=== PATIENT | female | born 1930 | race Caucasian/White ===

== ENCOUNTER 2017-05-20 14:44 | Inpatient (IN) | payer OTHER, MEDICARE ==
[2017-05-20 14:53] VITALS: BMI 24.9
[2017-05-20] MEDS ORDERED: SODIUM CHLORIDE 500 ML IV STA ×2 (14:58→15:22)
[2017-05-20] MEDS ORDERED: ONDANSETRON 4 MG/2 ML VIAL IVPUSH ONE ×2 (14:58→15:58)
[2017-05-20] MEDS ORDERED: ONDANSETRON 4 MG/2 ML VIAL ONE ×2 (15:11→16:03)
[2017-05-20 15:15] LABS: EOS % 0.5 % (0-4.5); HEMATOCRIT 39.7 % (32.4-45.2); LYMPH % 22.7 % (8-40); MCHC 35.2 g/dl (32.0-36.0); MEAN CELL VOLUME 76.8 fl (80-96); MEAN PLT VOLUME 7.8 fl (7.5-11.1); MONO % 2.8 % (3.8-10.2); PLATELET COUNT 257 K/MM3 (134-434); RBC 5.17 M/mm3 (3.60-5.2); WHITE BLOOD COUNT 10.9 K/mm3 (4.0-10.0)
--- NOTE | 2017-05-20 15:20 | PDOC ---
History of Present Illness - General History Source: Patient - History of Present Illness Abdominal Pain Onset Location: reports: other <Trent,NatalieRomulo - Last Filed: 05/20/17 17:33> <Sg Esposito - Last Filed: 05/25/17 02:45> - General Chief Complaint: Vomiting/Diarrhea Stated Complaint: VOMITING Time Seen by Provider: 05/20/17 14:57 Past History - Past Medical History COPD: Yes HTN: Yes Hypercholesterolemia: Yes Psychiatric Problems: Yes (ANXIETY) - Suicide/Smoking/Psychosocial Hx Smoking History: Never smoked Have you smoked in the past 12 months: No Hx Alcohol Use: No Drug/Substance Use Hx: No Substance Use Type: None Hx Substance Use Treatment: No <Bridgette Haji - Last Filed: 05/20/17 17:33> <Sg Esposito - Last Filed: 05/25/17 02:45> - Past Medical History Allergies/Adverse Reactions: Allergies Allergy/AdvReac Type Severity Reaction Status Date / Time No Known Allergies Allergy Verified 05/20/17 14:52 Home Medications: Ambulatory Orders LORazepam [Ativan] 0.5 mg PO TID PRN 06/20/15 Paroxetine HCl 30 mg PO DAILY 06/20/15 Simvastatin 40 mg PO HS 06/20/15 Olanzapine [Zyprexa -] 2.5 mg PO HS tablet 06/23/15 Valsartan 160 mg PO DAILY #30 tablet 06/23/15 Metoprolol Succinate [Toprol Xl] 25 mg PO DAILY 05/20/17 Lactobacillus Acidophilus [Bacid -] 1 tab PO DAILY 7 Days #7 tab 05/23/17 Review of Systems - Review of Systems Constitutional: Yes: Weakness. No: Chills, Fever Respiratory: No: Cough, Shortness of Breath Cardiac (ROS): No: Chest Pain ABD/GI: Yes: Nausea, Vomiting. No: Constipated, Diarrhea, Abdominal cramping <Bridgette Haji - Last Filed: 05/20/17 17:33> *Physical Exam - Vital Signs Last Vital Signs Temp Pulse Resp BP Pulse Ox 97 F L 67 18 119/61 99 05/20/17 14:50 05/20/17 14:50 05/20/17 14:50 05/20/17 14:50 05/20/17 14:50 - Physical Exam General Appearance: Yes: Appropriately Dressed, Mild Distress HEENT: positive: Normal Voice Neck: positive: Supple Respiratory/Chest: positive: Lungs Clear, Normal Breath Sounds. negative: Respiratory Distress Cardiovascular: positive: Regular Rate, S1, S2 Gastrointestinal/Abdominal: positive: Normal Bowel Sounds, Soft. negative: Tender, Distended, Guarding, Rebound Musculoskeletal: negative: CVA Tenderness Integumentary: positive: Dry, Warm Neurologic: positive: Fully Oriented, Alert, Normal Mood/Affect <Bridgette Haji - Last Filed: 05/20/17 17:33> - Vital Signs Last Vital Signs Temp Pulse Resp BP Pulse Ox 97.6 F 72 18 160/70 100 05/23/17 14:15 05/23/17 14:15 05/23/17 10:00 05/23/17 14:15 05/23/17 10:00 <Sg Esposito - Last Filed: 05/25/17 02:45> ED Treatment Course - LABORATORY CBC & Chemistry Diagram: 05/20/17 15:10 05/20/17 15:10 - Medications Given in the ED: ED Medications Discontinued Medications Generic Name Dose Route Start Last Admin Trade Name Freq PRN Reason Stop Dose Admin Ondansetron HCl 4 mg 05/20/17 14:58 05/20/17 15:14 Zofran Injection IVPUSH 05/20/17 14:59 4 mg ONCE ONE Administration <AdithyaBridgette - Last Filed: 05/20/17 17:33> - LABORATORY CBC & Chemistry Diagram: 05/23/17 06:10 05/23/17 06:10 - ADDITIONAL ORDERS Additional order review: 05/21/17 05/20/17 06:00 15:10 RBC 4.48 5.17 D MCV 77.6 L 76.8 L MCHC 34.8 35.2 RDW 16.2 H 16.0 H MPV 7.7 7.8 Neutrophils % Mud Jack Nozzleman 73.0 D Lymphocytes % Mud Jack Nozzleman 22.7 D Monocytes % Mud Jack Nozzleman 2.8 L Eosinophils % Mud Jack Nozzleman 0.5 D Basophils % Mud Jack Nozzleman 1.0 - Medications Given in the ED: ED Medications Discontinued Medications Generic Name Dose Route Start Last Admin Trade Name Freq PRN Reason Stop Dose Admin Atorvastatin Calcium 40 mg 05/20/17 22:00 05/22/17 21:49 Lipitor - PO 40 mg HS MOHIT Administration Sodium Chloride 500 mls @ 500 mls/hr 05/20/17 14:58 05/20/17 15:13 Normal Saline - IV 05/20/17 15:57 500 mls/hr ASDIR STA Administration Sodium Chloride 500 mls @ 500 mls/hr 05/20/17 15:22 05/20/17 15:34 Normal Saline - IV 05/20/17 16:21 500 mls/hr ASDIR STA Administration Potassium Chloride 10 meq in 100 mls @ 100 mls/hr 05/20/17 16:00 05/20/17 21: 56 Potassium Chloride 10 Meq Premix Ivpb - IVPB 05/20/17 18:59 Not Given Q60M MOHIT Potassium Chloride 10 meq/ 105 mls @ 105 mls/hr 05/20/17 19:00 05/20/17 21:38 Sodium Chloride IVPB 05/20/17 20:59 105 mls/hr Q60M MOHIT Administration Potassium Chloride/Sodium Chloride 20 meq in 1,000 mls @ 75 mls/hr 05/20/17 19 :15 05/20/17 21:56 1/2ns+20meq Kcl IV Not Given ASDIR MOHIT Potassium Chloride 20 meq/ 1,010 mls @ 75 mls/hr 05/20/17 21:45 05/21/17 23: 52 Sodium Chloride IV Not Given Q13H MOHIT Potassium Chloride 10 meq/ 105 mls @ 100 mls/hr 05/21/17 12:00 05/21/17 17:05 Sodium Chloride IVPB 05/21/17 14:59 100 mls/hr Q60M MOHIT Administration Potassium Chloride 20 meq/ 260 mls @ 130 mls/hr 05/21/17 21:15 05/21/17 21:43 Sodium Chloride IVPB 05/21/17 23:14 Not Given ONCE ONE Potassium Chloride 20 meq/ 1,010 mls @ 75 mls/hr 05/21/17 23:48 05/22/17 03: 00 Sodium Chloride IVPB 75 mls/hr Q13H MOHIT Administration Potassium Chloride 10 meq/ 105 mls @ 100 mls/hr 05/22/17 10:00 05/22/17 11:56 Sodium Chloride IVPB 05/22/17 11:59 100 mls/hr Q60M MOHIT Administration Sodium Chloride 1,000 mls @ 42 mls/hr 05/22/17 09:00 05/22/17 09:31 1/2 Normal Saline IV 42 mls/hr ASDIR MOHIT Administration Lactobacillus Acidophilus 1 tab 05/22/17 11:00 05/23/17 09:37 Bacid - PO 1 tab DAILY MOHIT Administration Levofloxacin 500 mg 05/21/17 13:45 05/21/17 14:13 Levaquin - PO Not Given DAILY@0600 MOHIT Levofloxacin 500 mg 05/21/17 13:45 05/21/17 14:09 Levaquin - PO 05/21/17 13:46 500 mg ONCE ONE Administration Lorazepam 0.5 mg 05/20/17 18:28 05/23/17 05:28 Ativan - PO 0.5 mg Q8H PRN Administration ANXIETY Metoprolol Succinate 25 mg 05/21/17 10:00 05/23/17 09:37 Toprol Xl - PO 25 mg DAILY MOHIT Administration Olanzapine 2.5 mg 05/20/17 22:00 05/22/17 21:49 Zyprexa - PO 2.5 mg HS MOHIT Administration Ondansetron HCl 4 mg 05/20/17 14:58 05/20/17 15:14 Zofran Injection IVPUSH 05/20/17 14:59 4 mg ONCE ONE Administration Ondansetron HCl 4 mg 05/20/17 15:58 05/20/17 16:13 Zofran Injection IVPUSH 05/20/17 15:59 4 mg ONCE ONE Administration Paroxetine HCl 20 mg/ 30 mg 05/21/17 10:00 05/23/17 09:37 Paroxetine HCl 10 mg PO 30 mg DAILY MOHIT Administration Potassium Chloride 40 meq 05/20/17 15:47 05/20/17 16:13 Potassium Chloride Oral Liquid PO 05/20/17 15:48 Not Given ONCE ONE Potassium Chloride 40 meq 05/21/17 00:47 05/21/17 00:55 K-Dur - PO 05/21/17 00:48 40 meq ONCE ONE Administration Potassium Chloride 40 meq 05/23/17 10:15 05/23/17 09:56 K-Dur - PO 05/23/17 10:16 40 meq ONCE ONE Administration Potassium Chloride 40 meq 05/23/17 14:00 05/23/17 14:33 K-Dur - PO 05/23/17 14:01 40 meq ONCE ONE Administration Promethazine HCl 25 mg 05/20/17 18:54 05/20/17 20:29 Phenergan Injection - IM 25 mg Q6H PRN Administration NAUSEA AND/OR VOMITING Valsartan 160 mg 05/21/17 10:00 05/23/17 09:37 Diovan - PO 160 mg DAILY MOHIT Administration Vancomycin HCl 125 mg 05/21/17 18:00 05/23/17 12:28 Vancomycin Oral Solution PO 125 mg Q6HPO MOHIT Administration <Sg Esposito - Last Filed: 05/25/17 02:45> Medical Decision Making - Medical Decision Making 05/20/17 15:17 87-year-old female, history of anxiety and depression, hypertension, hyperlipidemia, brought in by son for nausea, vomiting and diarrhea that has been intermittent 2 weeks. Patient states she's had numerous episodes of non- bloody, non-bilious vomiting and only one episode of diarrhea yesterday. Reports no abdominal pain or fever or chills. No sick contacts, recent travel or antibiotic use. Reports feeling profoundly weak at this time See exam N/V/D w/ weakness Stable in ED and alert w/ benign abd Possibly viral gastroenteritis vs cdif (though unlikely as only 1 e/o diarrhea) vs colitis -zofran -IVF -labs -CT -discuss dispo w/ PMD 05/20/17 15:48 K of 2.6. EKG w/ shortened FL and LVH, otherwise unremarkable. No CP os SOB. IV K in progress. Rest of labs unremarkable. CT still pending. Will contact PMD and admit at this time 05/20/17 16:[address] Mills and patient admitted <Bridgette Haji - Last Filed: 05/20/17 17:33> - Medical Decision Making 05/25/17 02:44 The patient was seen and evaluated in conjunction with MANOJ Haji under my direct supervision, ancillary studies were reviewed. I agree with the plan as outlined by MANOJ Haji . <Sg Esposito - Last Filed: 05/25/17 02:45> *DC/Admit/Observation/Transfer - Discharge Dispostion Admit: Yes <Bridgette Haji - Last Filed: 05/20/17 17:33> <Sg Esposito - Last Filed: 05/25/17 02:45> Diagnosis at time of Disposition: Dehydration, Hypokalemia Nausea and vomiting Qualifiers: Vomiting type: unspecified Vomiting Intractability: non-intractable Qualified Code(s): R11.2 - Nausea with vomiting, unspecified - Discharge Dispostion Disposition: VNS/HOME HEALTH CARE Condition at time of disposition: Fair
[2017-05-20 15:40] LABS: ALBUMIN 3.7 g/dl (3.4-5.0); ANION GAP 11 (8-16); BILIRUBIN,TOTAL 0.5 mg/dL (0.2-1.0); BLOOD UREA NITROGEN 19 mg/dL (7-18); CALCIUM 8.6 mg/dL (8.5-10.1); CHLORIDE 109 mmol/L (98-107); CO2 23 mmol/L (21-32); GLUCOSE,RANDOM 173 mg/dL (74-106); SGOT/AST 26 U/L (15-37); SGPT/ALT 33 U/L (12-78); SODIUM 143 mmol/L (136-145); TOT PROT 7.3 g/dl (6.4-8.2)
[2017-05-20 15:43] LABS: ALK PHOS 87 U/L (45-117)
[2017-05-20 15:44] LABS: LIPASE 223 U/L (73-393)
[2017-05-20 15:45] LABS: POTASSIUM 2.6 mmol/L (3.5-5.1)
[2017-05-20] MEDS ORDERED: POTASSIUM CHLORIDE ORAL LIQUID 20 MEQ/15 ML PO ONE (15:47)
[2017-05-20] MEDS ORDERED: KCL 10 MEQ IVPB 10 MEQ/100 ML INFUS.BAG IVPB ONE (16:04)
[2017-05-20] MEDS: KCL 10 MEQ IVPB 10 MEQ/100 ML INFUS.BAG IVPB SCH ×2 (16:13→21:56)
[2017-05-20] MEDS ORDERED: ONDANSETRON 4 MG/2 ML VIAL IVPUSH PRN (18:29)
[2017-05-20] MEDS ORDERED: PROMETHAZINE HCL 25 MG/1 ML VIAL IM PRN (18:54)
[2017-05-20] MEDS ORDERED: SODIUM CHLORIDE 0.45% 1,000 ML with POTASSIUM CHLORIDE 20 MEQ IVPB SCH (19:00)
--- NOTE | 2017-05-20 19:08 | HP ---
Admitting History and Physical - Admission Chief Complaint: N/V, diarrhea History of Present Illness: 87 yo female, having N/V intermittently throughout last week, some days no symptoms, otherdays decreased appetite and nausea. Did have diarrhea about 3-4 days ago, but has not recurred. No abd pain, but due to eating poorly has not had a lot of bowel movements lately. No ROBERTS, no fevers, no change with medications lately. In ED found to be dehydrated, also hypokalemic. History Source: Patient, Family Member, Medical Record Limitations to Obtaining History: No Limitations - Past Medical History Cardiovascular: Yes: HTN, Hyperlipdemia Psych: Yes: Anxiety, Bipolar - Past Surgical History Past Surgical History: Yes: Cataract Removal - Smoking History Smoking history: Never smoked Have you smoked in the past 12 months: No - Alcohol/Substance Use Hx Alcohol Use: No Home Medications - Allergies Allergies/Adverse Reactions: Allergies Allergy/AdvReac Type Severity Reaction Status Date / Time No Known Allergies Allergy Verified 05/20/17 14:52 - Home Medications Home Medications: Ambulatory Orders LORazepam [Ativan] 0.5 mg PO TID PRN 06/20/15 Paroxetine HCl 30 mg PO DAILY 06/20/15 Simvastatin 40 mg PO HS 06/20/15 Olanzapine [Zyprexa -] 2.5 mg PO HS tablet 06/23/15 Valsartan 160 mg PO DAILY #30 tablet 06/23/15 Metoprolol Succinate [Toprol Xl] 25 mg PO DAILY 05/20/17 Family Disease History - Family Disease History Family History: Unremarkable Review of Systems - Review of Systems Constitutional: reports: Loss of Appetite, Malaise, Weakness. denies: Chills, Fever, Unintentional Wgt. Loss Eyes: reports: No Symptoms HENT: denies: Difficult Swallowing, Throat Pain Neck: denies: Stiffness, Tenderness Cardiovascular: denies: Chest Pain, Palpitations Respiratory: denies: Cough, SOB, Wheezing Genitourinary: denies: Burning, Discharge, Dysuria Physical Examination Vital Signs: Vital Signs Temperature 97.8 F 05/20/17 18:00 Pulse Rate 72 05/20/17 18:00 Respiratory Rate 20 05/20/17 18:00 Blood Pressure 120/65 05/20/17 18:00 O2 Sat by Pulse Oximetry (%) 100 05/20/17 17:00 Constitutional: Yes: Mild Distress (due to nausea) Eyes: Yes: Conjunctiva Clear, EOM Intact, PERRL HENT: Yes: Atraumatic, Normocephalic Neck: Yes: Supple, Trachea Midline Cardiovascular: Yes: Regular Rate and Rhythm, S1, S2. No: Murmur Respiratory: Yes: Regular, CTA Bilaterally. No: Rales, Rhonchi, Wheezes Gastrointestinal: Yes: Normal Bowel Sounds, Soft, Distention (softly). No: Tenderness Edema: No Neurological: Yes: Alert, Oriented Labs: CBC, BMP 05/20/17 15:10 05/20/17 15:10 Imaging - Results Chest X-ray: Image Reviewed (no acute pulmonary disease) Cat Scan: Pending (CT abdomen pending) Problem List - Problems (1) Dehydration Assessment/Plan: -start IVF Code(s): E86.0 - DEHYDRATION (2) Nausea and vomiting Assessment/Plan: -gastroenteritis? gastritits? -anti-emetics, GI eval (CT abd still pending) Code(s): R11.2 - NAUSEA WITH VOMITING, UNSPECIFIED Qualifiers: Vomiting type: unspecified Vomiting Intractability: non-intractable Qualified Code(s): R11.2 - Nausea with vomiting, unspecified (3) Hypokalemia Assessment/Plan: -replete potassium, recheck level Code(s): E87.6 - HYPOKALEMIA (4) Bipolar disorder Assessment/Plan: -stable -on Zyprexa, paxil Code(s): F31.9 - BIPOLAR DISORDER, UNSPECIFIED (5) Hyperlipidemia Assessment/Plan: -on lipitor Code(s): E78.5 - HYPERLIPIDEMIA, UNSPECIFIED (6) Hypertension Assessment/Plan: -on diovan Code(s): I10 - ESSENTIAL (PRIMARY) HYPERTENSION
[2017-05-20] MEDS ORDERED: SODIUM CHLORIDE 0.45%/POT 20 MEQ/1,000 ML INFUS.BAG IV SCH ×2 (19:15)
[2017-05-20] MEDS: POTASSIUM CHLORIDE 10 MEQ in SODIUM CHLORIDE 100 ML IVPB SCH ×2 (20:00→21:38)
[2017-05-20 21:22] LABS: ANION GAP 10 (8-16); BLOOD UREA NITROGEN 18 mg/dL (7-18); CALCIUM 7.8 mg/dL (8.5-10.1); CHLORIDE 111 mmol/L (98-107); CO2 24 mmol/L (21-32); CREATININE 0.8 mg/dL (0.55-1.02); GLUCOSE,RANDOM 104 mg/dL (74-106); SODIUM 145 mmol/L (136-145)
[2017-05-20 21:28] LABS: POTASSIUM 2.6 mmol/L (3.5-5.1)
[2017-05-20] MEDS: OLANZapine 2.5 MG TABLET PO SCH ×2 (21:41→22:23)
[2017-05-20] MEDS: ATORVASTATIN CA 20 MG TABLET (FP) PO SCH ×2 (21:41→22:23)
[2017-05-20] MEDS: SODIUM CHLORIDE 0.45% 1,000 ML with POTASSIUM CHLORIDE 20 MEQ IV SCH (22:17)
[2017-05-20] MEDS: LORazepam 0.5 MG TABLET PO PRN (22:23)
[2017-05-21] MEDS ORDERED: POTASSIUM CHLORIDE TABS 20 MEQ TABLET.ER (FP) PO ONE (00:47)
[2017-05-21 07:32] LABS: HEMATOCRIT 34.8 % (32.4-45.2); HEMOGLOBIN 12.1 GM/dL (10.7-15.3); MCHC 34.8 g/dl (32.0-36.0); MEAN CELL VOLUME 77.6 fl (80-96); MEAN PLT VOLUME 7.7 fl (7.5-11.1); PLATELET COUNT 213 K/MM3 (134-434); RBC 4.48 M/mm3 (3.60-5.2); RDW 16.2 % (11.6-15.6); WHITE BLOOD COUNT 10.8 K/mm3 (4.0-10.0)
[2017-05-21 08:02] LABS: ALBUMIN 3.2 g/dl (3.4-5.0); AMYLASE 148 U/L (25-115); ANION GAP 8 (8-16); BLOOD UREA NITROGEN 16 mg/dL (7-18); CALCIUM 8.2 mg/dL (8.5-10.1); CHLORIDE 111 mmol/L (98-107); CO2 25 mmol/L (21-32); GLUCOSE,RANDOM 87 mg/dL (74-106); MAGNESIUM 1.8 mg/dL (1.8-2.4); SODIUM 144 mmol/L (136-145)
[2017-05-21 08:09] LABS: ALK PHOS 73 U/L (45-117); BILIRUBIN,TOTAL 0.5 mg/dL (0.2-1.0); CREATININE 0.9 mg/dL (0.55-1.02); SGOT/AST 26 U/L (15-37); SGPT/ALT 29 U/L (12-78); TOT PROT 6.2 g/dl (6.4-8.2)
[2017-05-21 08:16] LABS: LIPASE 1673 U/L (73-393)
[2017-05-21 09:02] LABS: URINE APPEARANCE CLEAR; URINE BILIRUBIN NEGATIVE (NEGATIVE); URINE BLOOD NEGATIVE (NEGATIVE); URINE COLOR YELLOW; URINE GLUCOSE (UA) NEGATIVE (NEGATIVE); URINE KETONE NEGATIVE (NEGATIVE); URINE LEUK ESTERASE TRACE (NEGATIVE); URINE NITRITE NEGATIVE (NEGATIVE); URINE PROTEIN NEGATIVE (NEGATIVE)
[2017-05-21 09:28] LABS: URINE MUCUS RARE
[2017-05-21] MEDS ORDERED: PT OWN MED DRAWER 7, Y5N ONE (09:44)
[2017-05-21] MEDS: PAROXETINE HCL 20 MG, PAROXETINE HCL 10 MG PO SCH (09:46)
[2017-05-21] MEDS: metoPROLOL SUCCINATE 25 MG TAB.SR.24H (FP) PO SCH (09:46)
[2017-05-21] MEDS: VALSARTAN 160 MG TABLET (UD) PO SCH (09:46)
[2017-05-21] MEDS: SODIUM CHLORIDE 0.45% 1,000 ML with POTASSIUM CHLORIDE 20 MEQ IV SCH ×2 (09:58→23:52)
[2017-05-21] MEDS ORDERED: PARoxetine HCL 30 MG TABLET PO SCH (10:00)
[2017-05-21] MEDS ORDERED: MAGNESIUM 2GM/50ML STERILE WATER IVPB IVPB ONE (10:15)
[2017-05-21 11:26] LABS: ANISOCYTOSIS 2+; MACROCYTOSIS 0; PLATELET ESTIMATE NORMAL
--- NOTE | 2017-05-21 12:23 | PN ---
Progress Note, Physician Chief Complaint: pt laying in bed in no acute distress. Reports there was some bright blood with stool this morning after drinking the contrast. She believes this to be due to hemorrhoids. Denies any chest pain, sob, n/v or weakness. - Current Medication List Current Medications: Active Medications Atorvastatin Calcium (Lipitor -) 40 mg PO HS [facility] Last Admin: 05/20/17 22:23 Dose: 40 mg Potassium Chloride 20 meq/ (Sodium Chloride) 1,010 mls @ 75 mls/hr IV Q13H [facility] Last Admin: 05/21/17 09:58 Dose: 75 mls/hr Potassium Chloride 10 meq/ (Sodium Chloride) 105 mls @ 100 mls/hr IVPB Q60M [facility] Stop: 05/21/17 14:59 Lorazepam (Ativan -) 0.5 mg PO Q8H PRN PRN Reason: ANXIETY Last Admin: 05/20/17 22:23 Dose: 0.5 mg Metoprolol Succinate (Toprol Xl -) 25 mg PO DAILY [facility] Last Admin: 05/21/17 09:46 Dose: 25 mg Olanzapine (Zyprexa -) 2.5 mg PO HS [facility] Last Admin: 05/20/17 22:23 Dose: 2.5 mg Ondansetron HCl (Zofran Injection) 4 mg IVPUSH Q8H PRN PRN Reason: NAUSEA Paroxetine HCl 20 mg/ (Paroxetine HCl 10 mg) 30 mg PO DAILY [facility] Last Admin: 05/21/17 09:46 Dose: 30 mg Promethazine HCl (Phenergan Injection -) 25 mg IM Q6H PRN PRN Reason: NAUSEA AND/OR VOMITING Last Admin: 05/20/17 20:29 Dose: 25 mg Valsartan (Diovan -) 160 mg PO DAILY [facility] Last Admin: 05/21/17 09:46 Dose: 160 mg - Objective Vital Signs: Vital Signs Temperature 97.7 F 05/21/17 08:22 Pulse Rate 80 05/21/17 08:22 Respiratory Rate 18 05/21/17 08:22 Blood Pressure 161/78 05/21/17 08:22 O2 Sat by Pulse Oximetry (%) 100 05/21/17 10:49 Constitutional: Yes: Well Nourished, No Distress Cardiovascular: Yes: WNL, Regular Rate and Rhythm Respiratory: Yes: WNL, Regular, CTA Bilaterally. No: Rales, Rhonchi, Tachypnea , Wheezes Gastrointestinal: Yes: WNL, Normal Bowel Sounds, Soft, Abdomen, Obese. No: Distention, Tenderness Genitourinary: Yes: WNL Edema: No Neurological: Yes: WNL, Alert, Oriented Psychiatric: Yes: WNL, Alert, Oriented Labs: CBC, BMP 05/21/17 06:00 05/21/17 06:00 - ....Imaging Cat Scan: Pending Problem List - Problems (1) Colitis Assessment/Plan: pt reports having diarrhea, worsened this am with contrast noticed some bright blood with the diarrhea this am CT suggestive of colitis pt clinically doing well, afebrile r/o infec etiology, cdiff/stool ova/para/culture ordered per gi IVF GI following pt started on po vanco to cover cdiff per gi Code(s): K52.9 - NONINFECTIVE GASTROENTERITIS AND COLITIS, UNSPECIFIED (2) Diarrhea Assessment/Plan: as above Code(s): R19.7 - DIARRHEA, UNSPECIFIED (3) Pancreatitis, acute Assessment/Plan: marked elevation in lipase, amylase elevated as well ct, abd exam, and clinical pic does not appear pancreatitis will monitor Code(s): K85.90 - ACUTE PANCREATITIS WITHOUT NECROSIS OR INFECTION, UNSP Qualifiers: Acute pancreatitis complication: no infection or necrosis (4) Dehydration Assessment/Plan: improving continue ivf and encourage po intake Code(s): E86.0 - DEHYDRATION (5) Hypokalemia Assessment/Plan: secondary to gi loss, poor po intake Improved, asymptomatic, K3.0 today IV Kcl 10meqx 3 runs recheck bmp 4pm will monitor Code(s): E87.6 - HYPOKALEMIA (6) Nausea and vomiting Assessment/Plan: Improved, denies any nausea/vomiting prn antiemetics will monitor GI consult appreciated Abd CT suggestive of colitis will monitor Code(s): R11.2 - NAUSEA WITH VOMITING, UNSPECIFIED Qualifiers: Vomiting type: unspecified Vomiting Intractability: non-intractable Qualified Code(s): R11.2 - Nausea with vomiting, unspecified (7) Hyperlipidemia Assessment/Plan: controlled continue lipitor Code(s): E78.5 - HYPERLIPIDEMIA, UNSPECIFIED (8) Hypertension Assessment/Plan: controlled on diovan and metoprolol Code(s): I10 - ESSENTIAL (PRIMARY) HYPERTENSION Qualifiers: Hypertension type: essential hypertension Qualified Code(s): I10 - Essential (primary) hypertension (9) Anxiety Assessment/Plan: controlled ativan prn Code(s): F41.9 - ANXIETY DISORDER, UNSPECIFIED (10) Bipolar disorder Assessment/Plan: appears calm continue zyprexza, paxil Code(s): F31.9 - BIPOLAR DISORDER, UNSPECIFIED Qualifiers: Active/Remission status: in full remission Most recent bipolar episode type : mixed Qualified Code(s): F31.78 - Bipolar disorder, in full remission, most recent episode mixed
--- NOTE | 2017-05-21 14:03 | CON.GI ---
Consult Consult Specialty:: GI: Dr. Leblanc covering for Dr. Michaud Referred by:: Dr. Kayden Mills Reason for Consultation:: N/V/D - History of Present Illness Chief Complaint: I was nauseaous at home History of Present Illness: 87F admitted through [facility] ER for evaluation of N/V and diarrhea. She states that the severe nausea and vomiting occurred intermittently over the last three days and that she had one episode of watery diarrhea at home. She was encouraged by her children to seek medical attention and she was admitted. In ER she was afebrile and labs revealed elevated amylase/lipase, chrloride of 111 , potassium of 3.0, WBC of 10.8 hgb of 12.1. She denies abdominal pain, similar episodes in the past, recent travel, recent antibiotic use, change in medications or sick contacts with similar complaints. Since admission, she has tolerated a liquid diet without vomiting, nausea has subsided but the diarrhea seemed to worsen after her CT scan of the abdomen and pelvis that utilized PO contrast. CT scan revealed some mildly enlarged upper abdominal lymphnodes and questioned thickening of the transvserse, descending and sigmoid colon jon. She does not recall ever having had an upper endoscopy or colonoscopy. There is a cancer history (brother, ? stomach cancer) and she is uncertain if there is a family history of colorectal cancer. She hd some scant rectal bleeding today. - Past Medical History Cardio/Vascular: Yes: HTN, Hyperlipdemia Psych: Yes: Anxiety, Bipolar, Depression - Past Surgical History Past Surgical History: Yes: Cataract Removal, Cholecystectomy (open), Tonsillectomy - Alcohol/Substance Use Hx Alcohol Use: No History of Substance Use: reports: None - Smoking History Smoking history: Never smoked Have you smoked in the past 12 months: No - Social History Usual Living Arrangement: With Spouse ADL: Independent Occupation: Retired RN Place of : Other ([place]) Came to [place]year[place] 1955 History of Recent Travel: No Home Medications - Allergies Allergies/Adverse Reactions: Allergies Allergy/AdvReac Type Severity Reaction Status Date / Time No Known Allergies Allergy Verified 05/20/17 14:52 - Home Medications Home Medications: Ambulatory Orders LORazepam [Ativan] 0.5 mg PO TID PRN 06/20/15 Paroxetine HCl 30 mg PO DAILY 06/20/15 Simvastatin 40 mg PO HS 06/20/15 Olanzapine [Zyprexa -] 2.5 mg PO HS tablet 06/23/15 Valsartan 160 mg PO DAILY #30 tablet 06/23/15 Metoprolol Succinate [Toprol Xl] 25 mg PO DAILY 05/20/17 Family Disease History - Family Disease History Family Disease History: Other: Father (: 90: old age), Mother (: 88 old age), Brother (2, both from cancer: one had ? stomach cancer, the other she could not remember) Other Family History: 6 healthy children Review of Systems - Review of Systems Constitutional: reports: Loss of Appetite. denies: Fever Cardiovascular: denies: Chest Pain Respiratory: denies: Cough, SOB Gastrointestinal: reports: Diarrhea, Nausea (resolved), Rectal Bleeding (scant BRBPR on toilet paper and mixed with stool today), Vomiting (resolved). denies : Abdominal Pain, Bloating, Constipation, Dysphagia, Melena, Vomiting Blood Physical Exam-GI Vital Signs: Vital Signs Temperature 97.7 F 05/21/17 08:22 Pulse Rate 80 05/21/17 08:22 Respiratory Rate 18 05/21/17 08:22 Blood Pressure 161/78 05/21/17 08:22 O2 Sat by Pulse Oximetry (%) 100 05/21/17 10:49 Constitutional: No: Calm Eyes: Yes: Sclera Icterus Cardiovascular: Yes: Regular Rate and Rhythm, Murmur (diastolic) Respiratory: Yes: CTA Bilaterally Gastrointestinal Inspection: Yes: Scars (RUQ surgical scar). No: Distention ...Auscultate: Yes: Normoactive Bowel Sounds ...Palpate: Yes: Soft. No: Guarding, Hepatomegaly, Splenomegaly, Tenderness, Tenderness, Rebound ...Percussion: No: Tympanitic ...Rectal Exam: Yes: Other (mild rectal prolapse with erythematous distal rectal tissue / hemorrhoids at the 8 O'clock/ 9 O'clock position) Labs: CBC, BMP 05/21/17 06:00 05/21/17 06:00 Problem List - Problems (1) Nausea and vomiting Assessment/Plan: resolved: Amylase mildly elevated and lipase elevated just above 3 x ULN however no clinical pancreatitis or radiographic evidence of acute pancreatitis. LFTs also do not reflect acute bile tract pathology consistent with gallstone pancreatitis. Zyprexa can be linked to acute pancreatitis however again no clinical evidence of acute pancreatitis. ? if elevated due to alternate bowel pathology / Nausea/vomiting. Code(s): R11.2 - NAUSEA WITH VOMITING, UNSPECIFIED Qualifiers: Vomiting type: unspecified Vomiting Intractability: non-intractable Qualified Code(s): R11.2 - Nausea with vomiting, unspecified (2) Diarrhea Assessment/Plan: Worsened since PO contrast with ? colitis on CT scan I have held antibiotics for now and ordered stool for O&P/Culture and C. Diff Started empiric PO vancocin to cover for C. Diff She had what appears to be rectal prolapse and irritated internal/external hemorrhoids. Anusol Cream SC BID for 5 days and will need reassessment of anorectal area when acute issues are resolved Code(s): R19.7 - DIARRHEA, UNSPECIFIED
[2017-05-21] MEDS: POTASSIUM CHLORIDE 10 MEQ in SODIUM CHLORIDE 100 ML IVPB SCH ×3 (14:10→17:05)
--- NOTE | 2017-05-21 17:06 | EKG ---
Test Reason : Blood Pressure : / mmHG Vent. Rate : 073 BPM Atrial Rate : 073 BPM P-R Int : 110 ms QRS Dur : 088 ms QT Int : 486 ms P-R-T Axes : -72 015 059 degrees QTc Int : 535 ms POSSIBLE WANDERING ATRIAL PACEMAKER WITH PREMATURE ATRIAL COMPLEXES LEFT VENTRICULAR HYPERTROPHY WITH REPOLARIZATION ABNORMALITY PROLONGED QT ABNORMAL ECG WHEN COMPARED WITH ECG OF 22-JUN-2015 10:47, POSSIBLE WANDERING ATRIAL PACEMAKER HAS REPLACED SINUS RHYTHM QT HAS LENGTHENED Confirmed by BE HUFFMAN MD ([id number]) on 05/21/2017 5:06:23 PM Referred By: Confirmed By:BE HUFFMAN MD
[2017-05-21] MEDS: VANCOMYCIN 250 MG/5 ML ORAL SOLUTION PO SCH ×2 (17:41→23:44)
[2017-05-21 19:39] LABS: ANION GAP 9 (8-16); BLOOD UREA NITROGEN 9 mg/dL (7-18); CALCIUM 7.6 mg/dL (8.5-10.1); CHLORIDE 112 mmol/L (98-107); CO2 23 mmol/L (21-32); GLUCOSE,RANDOM 72 mg/dL (74-106); POTASSIUM 3.4 mmol/L (3.5-5.1); SODIUM 144 mmol/L (136-145)
[2017-05-21] MEDS ORDERED: KCL 10 MEQ IVPB 10 MEQ/100 ML INFUS.BAG IVPB SCH (21:00)
[2017-05-21] MEDS ORDERED: POTASSIUM CHLORIDE 20 MEQ in SODIUM CHLORIDE 250 ML IVPB ONE (21:15)
[2017-05-21] MEDS: OLANZapine 2.5 MG TABLET PO SCH (21:37)
[2017-05-21] MEDS: ATORVASTATIN CA 20 MG TABLET (FP) PO SCH (21:37)
[2017-05-21] MEDS: LORazepam 0.5 MG TABLET PO PRN (21:44)
[2017-05-22] MEDS: POTASSIUM CHLORIDE 20 MEQ in SODIUM CHLORIDE 0.45% 1,000 ML IVPB SCH ×2 (00:54→03:00)
[2017-05-22] MEDS: VANCOMYCIN 250 MG/5 ML ORAL SOLUTION PO SCH ×4 (06:04→23:17)
[2017-05-22 07:04] LABS: BASO % 0.9 % (0-2.0); EOS % 4.3 % (0-4.5); HEMATOCRIT 33.7 % (32.4-45.2); HEMOGLOBIN 11.5 GM/dL (10.7-15.3); LYMPH % 36.2 % (8-40); MCH 26.9 pg (25.7-33.7); MCHC 34.3 g/dl (32.0-36.0); MEAN CELL VOLUME 78.4 fl (80-96); MEAN PLT VOLUME 7.3 fl (7.5-11.1); MONO % 6.5 % (3.8-10.2); NEUT % 52.1 % (42.8-82.8); PLATELET COUNT 204 K/MM3 (134-434); RBC 4.29 M/mm3 (3.60-5.2); RDW 16.4 % (11.6-15.6); WHITE BLOOD COUNT 8.2 K/mm3 (4.0-10.0)
[2017-05-22 07:13] LABS: AMYLASE 119 U/L (25-115)
[2017-05-22 07:15] LABS: ANION GAP 7 (8-16); BLOOD UREA NITROGEN 7 mg/dL (7-18); CALCIUM 7.8 mg/dL (8.5-10.1); CHLORIDE 114 mmol/L (98-107); CO2 25 mmol/L (21-32); CREATININE 0.8 mg/dL (0.55-1.02); GLUCOSE,RANDOM 81 mg/dL (74-106); MAGNESIUM 2.1 mg/dL (1.8-2.4); PHOSPHOROUS 2.4 mg/dL (2.5-4.9); POTASSIUM 3.5 mmol/L (3.5-5.1); SODIUM 146 mmol/L (136-145)
[2017-05-22 07:19] LABS: ALBUMIN 3.1 g/dl (3.4-5.0); BILIRUBIN,DIRECT < 0.2 mg/dL (0.0-0.2); BILIRUBIN,TOTAL 0.4 mg/dL (0.2-1.0); SGOT/AST 25 U/L (15-37); SGPT/ALT 29 U/L (12-78)
[2017-05-22 07:20] LABS: ALK PHOS 73 U/L (45-117)
[2017-05-22 07:39] LABS: LIPASE 585 U/L (73-393)
[2017-05-22] MEDS ORDERED: SODIUM CHLORIDE 0.45% 1,000 ML IV SCH (09:00)
[2017-05-22] MEDS ORDERED: PT OWN MED DRAWER 7, Y5N ONE (09:24)
[2017-05-22] MEDS: VALSARTAN 160 MG TABLET (UD) PO SCH (09:29)
[2017-05-22] MEDS: PAROXETINE HCL 20 MG, PAROXETINE HCL 10 MG PO SCH (09:29)
[2017-05-22] MEDS: metoPROLOL SUCCINATE 25 MG TAB.SR.24H (FP) PO SCH (09:29)
[2017-05-22] MEDS: POTASSIUM CHLORIDE 10 MEQ in SODIUM CHLORIDE 100 ML IVPB SCH ×2 (10:45→11:56)
[2017-05-22] MEDS: LACTOBACILLUS ACIDOPHILUS 1 EACH TAB (FP) PO SCH (11:55)
--- NOTE | 2017-05-22 13:14 | PN ---
Progress Note, Physician Chief Complaint: pt laying in bed in no acute distress. tolerating diet. 2 liquids bms today. reports she is feeling great. Denies any chest pain, sob, n/v or weakness. - Current Medication List Current Medications: Active Medications Atorvastatin Calcium (Lipitor -) 40 mg PO HS [facility] Last Admin: 05/21/17 21:37 Dose: 40 mg Sodium Chloride (1/2 Normal Saline) 1,000 mls @ 42 mls/hr IV ASDIR [facility] Last Admin: 05/22/17 09:31 Dose: 42 mls/hr Lactobacillus Acidophilus (Bacid -) 1 tab PO DAILY [facility] Last Admin: 05/22/17 11:55 Dose: 1 tab Lorazepam (Ativan -) 0.5 mg PO Q8H PRN PRN Reason: ANXIETY Last Admin: 05/21/17 21:44 Dose: 0.5 mg Metoprolol Succinate (Toprol Xl -) 25 mg PO DAILY [facility] Last Admin: 05/22/17 09:29 Dose: 25 mg Olanzapine (Zyprexa -) 2.5 mg PO [facility] Last Admin: 05/21/17 21:37 Dose: 2.5 mg Ondansetron HCl (Zofran Injection) 4 mg IVPUSH Q8H PRN PRN Reason: NAUSEA Paroxetine HCl 20 mg/ (Paroxetine HCl 10 mg) 30 mg PO DAILY [facility] Last Admin: 05/22/17 09:29 Dose: 30 mg Promethazine HCl (Phenergan Injection -) 25 mg IM Q6H PRN PRN Reason: NAUSEA AND/OR VOMITING Last Admin: 05/20/17 20:29 Dose: 25 mg Valsartan (Diovan -) 160 mg PO DAILY [facility] Last Admin: 05/22/17 09:29 Dose: 160 mg Vancomycin HCl (Vancomycin Oral Solution) 125 mg PO Q6HPO [facility] Last Admin: 05/22/17 12:28 Dose: 125 mg - Objective Vital Signs: Vital Signs Temperature 98.2 F 05/22/17 09:00 Pulse Rate 76 05/22/17 09:00 Respiratory Rate 16 05/22/17 09:00 Blood Pressure 118/67 05/22/17 09:00 O2 Sat by Pulse Oximetry (%) 100 05/22/17 02:00 Constitutional: Yes: Well Nourished, No Distress Cardiovascular: Yes: Regular Rate and Rhythm, Murmur Respiratory: Yes: Regular, CTA Bilaterally. No: Cough, Rales, Rhonchi, Tachypnea, Wheezes Gastrointestinal: Yes: WNL, Normal Bowel Sounds, Soft, Abdomen, Obese. No: Distention, Tenderness Genitourinary: Yes: WNL Edema: No Neurological: Yes: WNL, Alert, Oriented Psychiatric: Yes: WNL, Alert, Oriented Labs: CBC, BMP 05/22/17 06:30 05/22/17 06:30 - ....Imaging Other: Pending (cdiff/stool culture) Problem List - Problems (1) Colitis Code(s): K52.9 - NONINFECTIVE GASTROENTERITIS AND COLITIS, UNSPECIFIED (2) Diarrhea Code(s): R19.7 - DIARRHEA, UNSPECIFIED (3) Pancreatitis, acute Code(s): K85.90 - ACUTE PANCREATITIS WITHOUT NECROSIS OR INFECTION, UNSP Qualifiers: Acute pancreatitis complication: no infection or necrosis (4) Dehydration Code(s): E86.0 - DEHYDRATION (5) Hypokalemia Code(s): E87.6 - HYPOKALEMIA (6) Nausea and vomiting Code(s): R11.2 - NAUSEA WITH VOMITING, UNSPECIFIED Qualifiers: Vomiting type: unspecified Vomiting Intractability: non-intractable Qualified Code(s): R11.2 - Nausea with vomiting, unspecified (7) Hyperlipidemia Code(s): E78.5 - HYPERLIPIDEMIA, UNSPECIFIED (8) Hypertension Code(s): I10 - ESSENTIAL (PRIMARY) HYPERTENSION Qualifiers: Hypertension type: essential hypertension Qualified Code(s): I10 - Essential (primary) hypertension (9) Anxiety Code(s): F41.9 - ANXIETY DISORDER, UNSPECIFIED (10) Bipolar disorder Code(s): F31.9 - BIPOLAR DISORDER, UNSPECIFIED Qualifiers: Active/Remission status: in full remission Most recent bipolar episode type : mixed Qualified Code(s): F31.78 - Bipolar disorder, in full remission, most recent episode mixed Assessment/Plan (1) Colitis Assessment/Plan: CT suggestive of colitis 2 loose bms today pt clinically doing well, afebrile, wbc wnl, tolerating full liquids without n/v r/o infec etiology, cdiff/stool ova/para/culture pending IVF case discussed with GI and monitor pt overnight pt started on po vanco per gi Code(s): K52.9 - NONINFECTIVE GASTROENTERITIS AND COLITIS, UNSPECIFIED (2) Diarrhea Assessment/Plan: as above Code(s): R19.7 - DIARRHEA, UNSPECIFIED (3) Pancreatitis, acute Assessment/Plan: elevated, improved ct, abd exam, and clinical pic does not appear pancreatitis will monitor Code(s): K85.90 - ACUTE PANCREATITIS WITHOUT NECROSIS OR INFECTION, UNSP Qualifiers: Acute pancreatitis complication: no infection or necrosis (4) Dehydration Assessment/Plan: improved ivf encourage hydration Code(s): E86.0 - DEHYDRATION (5) Hypokalemia Assessment/Plan: secondary to gi loss Improved, asymptomatic, K3.5 today IV Kcl 10meqx 2 runs will monitor Code(s): E87.6 - HYPOKALEMIA (6) Nausea and vomiting Assessment/Plan: resolved Code(s): R11.2 - NAUSEA WITH VOMITING, UNSPECIFIED Qualifiers: Vomiting type: unspecified Vomiting Intractability: non-intractable Qualified Code(s): R11.2 - Nausea with vomiting, unspecified (7) Hyperlipidemia Assessment/Plan: controlled continue lipitor Code(s): E78.5 - HYPERLIPIDEMIA, UNSPECIFIED (8) Hypertension Assessment/Plan: controlled on diovan and metoprolol Code(s): I10 - ESSENTIAL (PRIMARY) HYPERTENSION Qualifiers: Hypertension type: essential hypertension Qualified Code(s): I10 - Essential (primary) hypertension (9) Anxiety Assessment/Plan: controlled ativan prn Code(s): F41.9 - ANXIETY DISORDER, UNSPECIFIED (10) Bipolar disorder Assessment/Plan: appears calm continue zyprexza, paxil Code(s): F31.9 - BIPOLAR DISORDER, UNSPECIFIED Qualifiers: Active/Remission status: in full remission Most recent bipolar episode type : mixed Qualified Code(s): F31.78 - Bipolar disorder, in full remission, most recent episode mixed Dispo: Home once gi cleared
--- NOTE | 2017-05-22 21:20 | PN ---
GI Progress Note Subjective: GI NOte: Shelli tells me that she feels great. She denies any N/V or abdominal pain. Still on liquids. Stool for C diff, WBCs and other cultures are still pending but receiving empiric Vancomycin. Given rapid resolution and lack of CT findings agree that she does not have pancreatitits - Objective Vital Signs: Vital Signs Temperature 97.8 F 05/22/17 14:21 Pulse Rate 71 05/22/17 14:21 Respiratory Rate 16 05/22/17 18:00 Blood Pressure 157/77 05/22/17 14:21 O2 Sat by Pulse Oximetry (%) 100 05/22/17 18:00 Laboratory Tests 05/20/17 05/21/17 05/22/17 15:10 06:00 06:30 WBC 10.9 H 8.2 Hgb 11.5 Total Bilirubin Albumin Total Amylase 148 H Lipase 1673 H 05/22/17 05/22/17 06:30 06:30 WBC Hgb Total Bilirubin 0.4 Albumin 3.1 L Total Amylase 119 H Lipase 585 H Constitutional: No Distress ...Auscultate: Yes: Normoactive Bowel Sounds ...Palpate: Yes: Soft, Other (nontender) Labs: CBC, BMP 05/22/17 06:30 05/22/17 06:30 Problem List - Problems (1) Diarrhea Assessment/Plan: Suspect resolving gastroenteritis but await cultures and stool WBCs to exclude a colitis as suggested by CT. Although the distribution is consistent with ischemic colitis a bloody diarrhea would have been expected. Will advance diet. If tolerated can consider discharge Code(s): R19.7 - DIARRHEA, UNSPECIFIED (2) Nausea and vomiting Code(s): R11.2 - NAUSEA WITH VOMITING, UNSPECIFIED Qualifiers: Vomiting type: unspecified Vomiting Intractability: non-intractable Qualified Code(s): R11.2 - Nausea with vomiting, unspecified
[2017-05-22] MEDS: OLANZapine 2.5 MG TABLET PO SCH (21:49)
[2017-05-22] MEDS: ATORVASTATIN CA 20 MG TABLET (FP) PO SCH (21:49)
[2017-05-22] MEDS: LORazepam 0.5 MG TABLET PO PRN (21:49)
[2017-05-23] MEDS: VANCOMYCIN 250 MG/5 ML ORAL SOLUTION PO SCH ×2 (05:28→12:28)
[2017-05-23] MEDS: LORazepam 0.5 MG TABLET PO PRN (05:28)
[2017-05-23 07:03] LABS: BASO % 1.3 % (0-2.0); EOS % 5.7 % (0-4.5); HEMATOCRIT 34.8 % (32.4-45.2); HEMOGLOBIN 11.9 GM/dL (10.7-15.3); LYMPH % 33.5 % (8-40); MCH 26.8 pg (25.7-33.7); MCHC 34.3 g/dl (32.0-36.0); MEAN CELL VOLUME 78.1 fl (80-96); MEAN PLT VOLUME 7.4 fl (7.5-11.1); MONO % 6.5 % (3.8-10.2); PLATELET COUNT 221 K/MM3 (134-434); RBC 4.46 M/mm3 (3.60-5.2); RDW 16.1 % (11.6-15.6); WHITE BLOOD COUNT 7.8 K/mm3 (4.0-10.0)
[2017-05-23 07:15] LABS: AMYLASE 50 U/L (25-115); BLOOD UREA NITROGEN 6 mg/dL (7-18); CO2 27 mmol/L (21-32); CREATININE 0.8 mg/dL (0.55-1.02); GLUCOSE,RANDOM 82 mg/dL (74-106); LIPASE 200 U/L (73-393); PHOSPHOROUS 3.4 mg/dL (2.5-4.9)
[2017-05-23 07:25] LABS: ANION GAP 9 (8-16); CHLORIDE 108 mmol/L (98-107); POTASSIUM 3.1 mmol/L (3.5-5.1); SODIUM 144 mmol/L (136-145)
[2017-05-23] MEDS ORDERED: PT OWN MED DRAWER 7, Y5N ONE (09:31)
[2017-05-23] MEDS: metoPROLOL SUCCINATE 25 MG TAB.SR.24H (FP) PO SCH (09:37)
[2017-05-23] MEDS: LACTOBACILLUS ACIDOPHILUS 1 EACH TAB (FP) PO SCH (09:37)
[2017-05-23] MEDS: PAROXETINE HCL 20 MG, PAROXETINE HCL 10 MG PO SCH (09:37)
[2017-05-23] MEDS: VALSARTAN 160 MG TABLET (UD) PO SCH (09:37)
--- NOTE | 2017-05-23 09:48 | PN ---
GI Progress Note Subjective: GI NOte: No BM overnight. Ate breakfast very well. No nausea or vomiting but today Shelli is very confused. She denies abdominal pain. Stools have been collected and are pending. - Objective Vital Signs: Vital Signs Temperature 98.5 F 05/23/17 09:00 Pulse Rate 85 05/23/17 09:00 Respiratory Rate 18 05/23/17 09:00 Blood Pressure 144/77 05/23/17 09:00 O2 Sat by Pulse Oximetry (%) 100 05/23/17 02:00 Gastrointestinal Inspection: Yes: Distention ...Auscultate: Yes: Normoactive Bowel Sounds ...Palpate: Yes: Soft, Other (nontender) ...Percussion: Yes: Tympanitic Labs: CBC, BMP 05/23/17 06:10 05/23/17 06:10 Problem List - Problems (1) Diarrhea Assessment/Plan: Continue to suspect resolving gastroenteritis but await cultures and stool WBCs to exclude a colitis as suggested by CT. Tolerating diet. Problem is she appears to be " sundowning". Discussed with MANOJ Sanz. Code(s): R19.7 - DIARRHEA, UNSPECIFIED (2) Nausea and vomiting Code(s): R11.2 - NAUSEA WITH VOMITING, UNSPECIFIED Qualifiers: Vomiting type: unspecified Vomiting Intractability: non-intractable Qualified Code(s): R11.2 - Nausea with vomiting, unspecified
[2017-05-23] MEDS ORDERED: POTASSIUM CHLORIDE TABS 20 MEQ TABLET.ER (FP) PO ONE ×2 (10:15→14:00)
--- NOTE | 2017-05-23 12:49 | DS ---
Physical Examination Vital Signs: Vital Signs Temperature 98.5 F 05/23/17 09:00 Pulse Rate 85 05/23/17 09:00 Respiratory Rate 18 05/23/17 10:00 Blood Pressure 144/77 05/23/17 09:00 O2 Sat by Pulse Oximetry (%) 100 05/23/17 10:00 Findings/Remarks: Pt sitting in chair in no acute distress. Alert and oriented x 2, disoriented to location/situation. Contacted and spoke with son who reports pt has been told recently she has early onset dementia. Informed pt's son, someone needs to be with her at all times for safety. Son reports he is at the house. Otherwise, pt doing well. Denies any chest pain, sob, n/v/d Constitutional: Yes: Well Nourished, No Distress Cardiovascular: Yes: WNL, Regular Rate and Rhythm, Murmur. No: Bruit, JVD, Rub Respiratory: Yes: WNL, Regular, CTA Bilaterally. No: Rales, Rhonchi, Tachypnea , Wheezes Gastrointestinal: Yes: WNL, Normal Bowel Sounds, Soft, Abdomen, Obese. No: Distention, Tenderness Musculoskeletal: Yes: WNL Extremities: Yes: WNL Edema: No Neurological: Yes: Alert, Confusion Psychiatric: Yes: WNL, Alert Labs: CBC, BMP 05/23/17 06:10 05/23/17 06:10 Discharge Summary Reason For Visit: DEHYDRATION Current Active Problems Bipolar disorder (Acute) Colitis (Acute) Dehydration (Acute) Diarrhea (Acute) Hypokalemia (Acute) Nausea and vomiting (Acute) Pancreatitis, acute (Acute) Hospital Course: is a pleasant 87 year old female who came in with N/V/D. Abd CT showed colitis of desc colon. GI was consulted and pt was treated with antibiotics for diarrhea which has improved. stool was neg for cdiff. She has been tolerating diet without n/v. She's been working well with PT. Pt also found to be dehydrated with hypokalemia secondary to diarrhea which improved with ivf, electrolyte repletion. Pt has been otherwise doing well. Today, appears slightly confused, discussed with son, this could be sundowning/ being in unfamiliar setting. Otherwise, pt medically cleared for discharge. Advised to follow up with PCP within 7 days. Condition: Fair - Instructions Diet, Activity, Other Instructions: Ambulate as tolerated Diet: may resume regular diet, avoid dairy/lactose for the next week. maintain adequate hydration and nutrition Meds: resume. probiotic ordered, take for 7 days FOLLOW UP: Your potassium levels have been low here, most likely from diarrhea or not eating much, please see within the next 7 days or sooner to check blood work Seek medical care if you experience chest pain, sob, n/v/d, weakness, fever/ chills, abdominal distention Referrals: Mukund Michaud MD [Staff Physician] - 1 Week Kayden Mills MD [Primary Care Provider] - 1 Week Disposition: HOME - Home Medications Comprehensive Discharge Medication List: Ambulatory Orders LORazepam [Ativan] 0.5 mg PO TID PRN 06/20/15 Paroxetine HCl 30 mg PO DAILY 06/20/15 Simvastatin 40 mg PO HS 06/20/15 Olanzapine [Zyprexa -] 2.5 mg PO HS tablet 06/23/15 Valsartan 160 mg PO DAILY #30 tablet 06/23/15 Metoprolol Succinate [Toprol Xl] 25 mg PO DAILY 05/20/17 Lactobacillus Acidophilus [Bacid -] 1 tab PO DAILY 7 Days #7 tab 05/23/17
[2017-05-23 14:16] VITALS: BP 160/70; PULSE 72; TEMP 97.6
[2017-05-24 14:14] LABS: TRANSGLUTAMINASE IGA < 2 U/mL (0-3); TRANSGLUTAMINASE IGG < 2 U/mL (0-5)
== END 2017-05-23 15:33 | disposition home health service (06) | DRG 392 ==
LOC: JER 14:44 → INTOOBSV 16:20 → JERBED 16:20 → UNDOADMOB 16:20 → J6S 18:04 → JERBED 18:04 → J6S 18:59 → OBSVTOIN 05-21 15:03
PROVIDERS: ADMIT Specialist; ATTEND Specialist
DX: K52.9 Noninfective gastroenteritis and colitis, unspecified (principal); F31.89 Other bipolar disorder; E86.0 Dehydration; J44.9 Chronic obstructive pulmonary disease, unspecified; I10 Essential (primary) hypertension; E78.00 Pure hypercholesterolemia, unspecified; F41.8 Other specified anxiety disorders; R11.2 Nausea with vomiting, unspecified; E87.6 Hypokalemia
CPT/HCPCS: 36415; 71045-TC-FY; 74177-TC; 80048; 80053; 80076; 81003; 81015; 82150; 82550; 82553; 83516; 83690; 83735; 84100; 84132; 84484; 85025; 86140; 86301; 87045; 87046; 87177; 87205; 87209; 87324; 87449; 93005; 93010; 97116-GP; 97161-GP; 99284-25; G0378

== ENCOUNTER 2017-06-22 16:31 | Observation (INO) | payer OTHER, MEDICARE ==
--- NOTE | 2017-06-22 16:36 | PDOC ---
Rapid Medical Evaluation Chief Complaint: Weakness Time Seen by Provider: 06/22/17 16:33 Medical Evaluation: Allergies Allergy/AdvReac Type Severity Reaction Status Date / Time No Known Allergies Allergy Verified 06/22/17 16:32 06/22/17 16:33 The patient presents with a chief complaint of: Vomiting, feeling weak. Not eating. Also complaining of headache. Son recently I have performed a brief in-person evaluation of this patient; Pertinent physical exam findings: ambulatory, in no respiratory distress. Pt tearful on exam and very anxious. No abdominal pain, neurologically grossly intact I have ordered the following: CBC, CMP, PT/INR, Lipase, UA,UC The patient will proceed to the ED for further evaluation. Discharge Disposition - Referrals Referrals: Kayden Mills MD [Primary Care Provider] - - Patient Instructions - Post Discharge Activity
[2017-06-22 17:09] LABS: BASO % 0.7 % (0-2.0); EOS % 0.3 % (0-4.5); HEMATOCRIT 37.7 % (32.4-45.2); HEMOGLOBIN 13.3 GM/dL (10.7-15.3); LYMPH % 22.4 % (8-40); MCH 27.6 pg (25.7-33.7); MCHC 35.3 g/dl (32.0-36.0); MEAN CELL VOLUME 78.3 fl (80-96); MEAN PLT VOLUME 7.1 fl (7.5-11.1); MONO % 3.4 % (3.8-10.2); NEUT % 73.2 % (42.8-82.8); PLATELET COUNT 304 K/MM3 (134-434); RBC 4.82 M/mm3 (3.60-5.2); RDW 15.1 % (11.6-15.6); WHITE BLOOD COUNT 11.5 K/mm3 (4.0-10.0)
--- NOTE | 2017-06-22 17:19 | PDOC ---
History of Present Illness - General Chief Complaint: Weakness Stated Complaint: Nausea/Vomiting Time Seen by Provider: 06/22/17 16:33 History Source: Patient, Family (daughter), Old Records Exam Limitations: No Limitations - History of Present Illness Initial Comments: 06/22/17 17:20 This is an 87-year-old female past medical history of hypertension and COPD who presents emergency Department with generalized weakness and vomiting today. Patient and daughter state that the patient has similar episode approximately one month ago where she was admitted here for hypokalemia. Daughter states the patient had no recollection of previous admission until 3 days after discharge. Today the patient has tried to eat injuring but has vomited everything that she has taken orally. During the interview the patient is crying and disclose that her son was a professional cyclist who recently was in a bicycle accident and had . Patient was tearful throughout the interview. She denies fevers, chills, headaches, dizziness, shortness of breath, chest pain, abdominal pain, dysuria, hematuria, vaginal bleeding, rectal bleeding or diarrhea. Past History - Past Medical History Allergies/Adverse Reactions: Allergies Allergy/AdvReac Type Severity Reaction Status Date / Time No Known Allergies Allergy Verified 06/22/17 16:32 Home Medications: Ambulatory Orders LORazepam [Ativan] 0.5 mg PO TID PRN 06/20/15 Paroxetine HCl 30 mg PO DAILY 06/20/15 Simvastatin 40 mg PO HS 06/20/15 Olanzapine [Zyprexa -] 2.5 mg PO HS tablet 06/23/15 Valsartan 160 mg PO DAILY #30 tablet 06/23/15 Metoprolol Succinate [Toprol Xl] 25 mg PO DAILY 05/20/17 COPD: Yes HTN: Yes Hypercholesterolemia: Yes Psychiatric Problems: Yes (ANXIETY) - Surgical History Cholecystectomy: Yes - Suicide/Smoking/Psychosocial Hx Smoking History: Never smoked Have you smoked in the past 12 months: No Information on smoking cessation initiated: No Hx Alcohol Use: No Drug/Substance Use Hx: No Substance Use Type: None Hx Substance Use Treatment: No Review of Systems - Review of Systems Able to Perform ROS?: Yes Is the patient limited Mexican proficient: No Constitutional: Yes: See HPI HEENTM: No: Symptoms Reported Respiratory: No: Symptoms reported Cardiac (ROS): No: Symptoms Reported ABD/GI: Yes: See HPI : No: Symptoms Reported Musculoskeletal: No: Symptoms Reported Integumentary: No: Symptoms Reported Neurological: No: Symptoms reported *Physical Exam - Vital Signs Last Vital Signs Temp Pulse Resp BP Pulse Ox 98.0 F 77 18 163/70 100 06/22/17 16:32 06/22/17 16:32 06/22/17 16:32 06/22/17 16:32 06/22/17 16:32 - Physical Exam General Appearance: Yes: Appropriately Dressed. No: Apparent Distress HEENT: positive: Normal ENT Inspection Neck: positive: Trachea midline, Supple Respiratory/Chest: positive: Lungs Clear, Normal Breath Sounds. negative: Respiratory Distress, Accessory Muscle Use Cardiovascular: positive: Regular Rhythm, Regular Rate, S1, S2. negative: Edema , Murmur Gastrointestinal/Abdominal: positive: Normal Bowel Sounds, Soft. negative: Tender Musculoskeletal: positive: Normal Inspection. 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 Respirations even and unlabored. Lungs clear to auscultation bilaterally. RRR. S1 and S2 present. No murmur, rub or gallop appreciated. No edema noted. Abdomen soft nontender nondistended. Differential diagnoses include: ACS, electrolyte abnormalities, discrete infection Labs, chest x-ray, EKG, contact PCP *DC/Admit/Observation/Transfer Diagnosis at time of Disposition: Failure to thrive Qualifiers: Failure to thrive age range: in adult Qualified Code(s): R62.7 - Adult failure to thrive - Discharge Dispostion Condition at time of disposition: Stable - Referrals - Patient Instructions - Post Discharge Activity
[2017-06-22 17:21] LABS: INR 1.11 (0.82-1.09); PROTHROMBIN TIME (PATIENT) 12.5 SEC (9.98-11.88)
--- NOTE | 2017-06-22 17:32 | PDOC ---
*Physical Exam - Vital Signs Last Vital Signs Temp Pulse Resp BP Pulse Ox 98.0 F 77 18 163/70 100 06/22/17 16:32 06/22/17 16:32 06/22/17 16:32 06/22/17 16:32 06/22/17 16:32 ED Treatment Course - LABORATORY CBC & Chemistry Diagram: 06/22/17 16:55 06/22/17 16:55 - ADDITIONAL ORDERS Additional order review: 06/22/17 16:55 RBC 4.82 MCV 78.3 L MCHC 35.3 RDW 15.1 MPV 7.1 L Neutrophils % 73.2 D Lymphocytes % 22.4 D Monocytes % 3.4 L Eosinophils % 0.3 D Basophils % 0.7 Medical Decision Making - Medical Decision Making 06/22/17 17:32 Pt seen by the Advanced Practice Provider under my direct supervision Ancillary studies reviewed I agree with plan as outlined by the Advanced Practice Provider GIRISH Bob *DC/Admit/Observation/Transfer - Referrals Referrals: Kayden Mills MD [Primary Care Provider] - - Patient Instructions - Post Discharge Activity
[2017-06-22 17:50] LABS: ALBUMIN 3.8 g/dl (3.4-5.0); ANION GAP 8 (8-16); BILIRUBIN,TOTAL 0.3 mg/dL (0.2-1.0); BLOOD UREA NITROGEN 16 mg/dL (7-18); CALCIUM 9.4 mg/dL (8.5-10.1); CHLORIDE 109 mmol/L (98-107); CO2 25 mmol/L (21-32); GLUCOSE,RANDOM 136 mg/dL (74-106); LIPASE 92 U/L (73-393); POTASSIUM 3.3 mmol/L (3.5-5.1); SGOT/AST 20 U/L (15-37); SGPT/ALT 23 U/L (12-78); SODIUM 142 mmol/L (136-145); TOT PROT 7.5 g/dl (6.4-8.2)
[2017-06-22 17:51] LABS: ALK PHOS 82 U/L (45-117)
--- NOTE | 2017-06-22 19:36 | PDOC ---
*Physical Exam - Vital Signs Last Vital Signs Temp Pulse Resp BP Pulse Ox 98.0 F 77 18 163/70 100 06/22/17 16:32 06/22/17 16:32 06/22/17 16:32 06/22/17 16:32 06/22/17 16:32 - Physical Exam Comments: 06/22/17 19:37 87-year-old female with a history of hypertension presents to the emergency department complaining of increased weakness since yesterday with the inability to tolerate by mouth intake. Patient has been nauseous with 4 vomiting/ nonbilious, nonbloody. Patient denies headache, dizziness, lightheadedness, chest pain, shortness of breath, abdominal pains, flank pains, urinary symptoms. ED Treatment Course - LABORATORY CBC & Chemistry Diagram: 06/22/17 16:55 06/22/17 16:55 - ADDITIONAL ORDERS Additional order review: Laboratory Results 06/22/17 06/22/17 06/22/17 16:55 16:55 16:55 PT with INR 12.50 H INR 1.11 Sodium 142 Potassium 3.3 L Chloride 109 H Carbon Dioxide 25 Anion Gap 8 BUN 16 Creatinine 1.0 Creat Clearance w eGFR 52.33 Random Glucose 136 H Calcium 9.4 Total Bilirubin 0.3 D AST 20 ALT 23 Alkaline Phosphatase 82 Creatine Kinase 101 Troponin I < 0.02 Total Protein 7.5 Albumin 3.8 Lipase 92 06/22/17 16:55 RBC 4.82 MCV 78.3 L MCHC 35.3 RDW 15.1 MPV 7.1 L Neutrophils % 73.2 D Lymphocytes % 22.4 D Monocytes % 3.4 L Eosinophils % 0.3 D Basophils % 0.7 Progress Note - Progress Note Progress Note: CONSTITUTIONAL: +generalized weakness, Absent: fever, chills, diaphoresis, malaise, loss of appetite HEENT: Absent: rhinorrhea, nasal congestion, throat pain, throat swelling, difficulty swallowing, mouth swelling, ear pain, eye pain, visual Changes CARDIOVASCULAR: Absent: chest pain, loss of consciousness, palpitations, irregular heart rate, peripheral edema RESPIRATORY: Absent: cough, shortness of breath, dyspnea with exertion, orthopnea, wheezing, stridor, hemoptysis GASTROINTESTINAL: +n/v Absent: abdominal pain, abdominal distension, diarrhea, constipation, melena, hematochezia GENITOURINARY: Absent: dysuria, frequency, urgency, hesitancy, hematuria, flank pain, genital pain MUSCULOSKELETAL: Absent: myalgia, arthralgia, joint swelling SKIN: Absent: rash, itching, pallor HEMATOLOGIC/IMMUNOLOGIC: Absent: easy bleeding, easy bruising, lymphadenopathy, frequent infections ENDOCRINE: Absent: unexplained weight gain, unexplained weight loss, heat intolerance, cold intolerance NEUROLOGIC: Absent: headache, focal weakness or paresthesias, dizziness, unsteady gait, seizure, mental status changes, bladder or bowel incontinence PSYCHIATRIC: Absent: anxiety, depression, suicidal or homicidal ideation, hallucinations. GENERAL: Well developed, well nourished. Awake and alert. No acute distress. HEENT: Normocephalic, atraumatic. PERRLA, EOMI. No conjunctival pallor. Sclera are non- icteric. Moist mucous membranes. Oropharynx is clear. NECK: Supple. Full ROM. No JVD. Carotid pulses 2+ and symmetric, without bruits. No thyromegaly. No lymphadenopathy. CARDIOVASCULAR: Regular rate and rhythm. No murmurs, rubs, or gallops. Distal pulses are 2+ and symmetric. PULMONARY: No evidence of respiratory distress. Lungs clear to auscultation bilaterally. No wheezing, rales or rhonchi. ABDOMINAL: Soft. Non-tender. Non-distended. No rebound or guarding. No organomegaly. Normoactive bowel sounds. MUSCULOSKELETAL Normal range of motion at all joints. No bony deformities or tenderness. No CVA tenderness. EXTREMITIES: No cyanosis. No clubbing. No edema. No calf tenderness. SKIN: Warm and dry. Normal capillary refill. No rashes. No jaundice. NEUROLOGICAL: Alert, awake, appropriate. Cranial nerves 2-12 intact. No deficits to light touch and temperature in face, upper extremities and lower extremities. No motor deficits in the in face, upper extremities and lower extremities. Normoreflexic in the upper and lower extremities. Normal speech. Toes are down- going bilaterally. Gait is normal without ataxia. PSYCHIATRIC: Cooperative. Good eye contact. Appropriate mood and affect. *DC/Admit/Observation/Transfer Diagnosis at time of Disposition: Failure to thrive Qualifiers: Failure to thrive age range: in adult Qualified Code(s): R62.7 - Adult failure to thrive - Discharge Dispostion Condition at time of disposition: Stable Admit: Yes - Referrals Referrals: Kayden Mills MD [Primary Care Provider] - - Patient Instructions - Post Discharge Activity
--- NOTE | 2017-06-22 20:18 | HP ---
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 She was directed to come to ed by her GI because she had similar symptoms a month ago prior to admission for hypokalemia. patient is emotionally distressed because her son, who was a professional cyclist a few days ago s/p accident. She has not eaten or drank anything for 3 days. her first light meal today was not tolerated due to vomiting. She took her AM meds but likely vomited them. She denies f/c, abd pain, diarrhea, constipation. She denies cp, sob, cough, h/a, dysuria. She reports normal sleep, bm and urination. ER course was notable for: (1)labs (2)ivf Recent Travel: denies PAST MEDICAL HISTORY: as above PAST SURGICAL HISTORY: as above Social History: lives at home with family Smoking: denies Alcohol: denies Drugs: denies Family History: noncontributory Allergies No Known Allergies Allergy (Verified 06/22/17 16:32) HOME MEDICATIONS: Home Medications Medication Instructions Recorded LORazepam [Ativan] 0.5 mg PO TID PRN 06/20/15 Paroxetine HCl 30 mg PO DAILY 06/20/15 Simvastatin 40 mg PO HS 06/20/15 Olanzapine [Zyprexa -] 2.5 mg PO HS tablet 06/23/15 Valsartan 160 mg PO DAILY #30 tablet 06/23/15 Metoprolol Succinate [Toprol Xl] 25 mg PO DAILY 05/20/17 REVIEW OF SYSTEMS CONSTITUTIONAL: Absent: fever, chills, diaphoresis HEENT: Absent: rhinorrhea, nasal congestion, throat pain CARDIOVASCULAR: Absent: chest pain, syncope, irregular heart rate, lightheadedness, peripheral edema RESPIRATORY: Absent: cough, shortness of breath GASTROINTESTINAL: Absent: abdominal pain, abdominal distension, diarrhea, constipation, melena, hematochezia GENITOURINARY: Absent: dysuria MUSCULOSKELETAL: Absent: back pain, neck pain SKIN: Absent: rash, itching, pallor HEMATOLOGIC/IMMUNOLOGIC: Absent: easy bleeding, easy bruising ENDOCRINE: Absent: unexplained weight gain, unexplained weight loss, heat intolerance, cold intolerance NEUROLOGIC: Absent: headache, focal weakness or paresthesias PSYCHIATRIC: Absent: suicidal or homicidal ideation, hallucinations. PHYSICAL EXAMINATION Vital Signs - 24 hr 06/22/17 16:32 Temperature 98.0 F Pulse Rate 77 Respiratory 18 Rate Blood Pressure 163/70 O2 Sat by Pulse 100 Oximetry (%) GENERAL: Awake, alert, and fully oriented, tearful HEAD: Normal with no signs of trauma. EYES: Pupils equal, round and reactive to light, extraocular movements intact, sclera anicteric, conjunctiva clear. No lid lag. EARS, NOSE, THROAT: Moist mucous membranes. NECK: supple without JVD LUNGS: Breath sounds equal, clear to auscultation bilaterally HEART: Regular rate and rhythm, normal S1 and S2 grade 3 systolic murmur best heard in R upper sternum ABDOMEN: Soft, slightly tender pelvis, not distended, normoactive bowel sounds, no guarding, no rebound, no masses. MUSCULOSKELETAL: No CVA tenderness. UPPER EXTREMITIES: 2+ pulses, warm, well-perfused. No cyanosis. No clubbing. No peripheral edema. LOWER EXTREMITIES: 2+ pulses, warm, well-perfused. No calf tenderness. No peripheral edema. NEUROLOGICAL: Cranial nerves II-XII grossly intact. Normal speech. PSYCHIATRIC: Cooperative. Good eye contact. Appropriate mood and affect. SKIN: Warm, dry, decreased turgor Laboratory Results - last 24 hr 06/22/17 06/22/17 06/22/17 16:55 16:55 16:55 WBC 11.5 H D RBC 4.82 Hgb 13.3 D Hct 37.7 MCV 78.3 L MCH 27.6 MCHC 35.3 RDW 15.1 Plt Count 304 D MPV 7.1 L Neutrophils % 73.2 D Lymphocytes % 22.4 D Monocytes % 3.4 L Eosinophils % 0.3 D Basophils % 0.7 PT with INR 12.50 H INR 1.11 Sodium 142 Potassium 3.3 L Chloride 109 H Carbon Dioxide 25 Anion Gap 8 BUN 16 Creatinine 1.0 Creat Clearance w eGFR 52.33 Random Glucose 136 H Calcium 9.4 Total Bilirubin 0.3 D AST 20 ALT 23 Alkaline Phosphatase 82 Creatine Kinase Troponin I Total Protein 7.5 Albumin 3.8 Lipase 06/22/17 16:55 WBC RBC Hgb Hct MCV MCH MCHC RDW Plt Count MPV Neutrophils % Lymphocytes % Monocytes % Eosinophils % Basophils % PT with INR INR Sodium Potassium Chloride Carbon Dioxide Anion Gap BUN Creatinine Creat Clearance w eGFR Random Glucose Calcium Total Bilirubin AST ALT Alkaline Phosphatase Creatine Kinase 101 Troponin I < 0.02 Total Protein Albumin Lipase 92 ASSESSMENT/PLAN: This is an 87 yo F with PMH of colitis 4 w ago, HTN and COPD, who presents due to multiple episodes of nbnb vomiting, generalized weakness and failure to thrive. nausea/vomiting, failure to thrive -possibly an emotional response, doubt acute colitis, abdomen is benign -slight leukocytosis 11.5 with neutrophilic predominance, may be due to vomiting -f/u UA; nop abx unless + -zofran prn, IVF -attempt full liquids in the morning, if tolerates can dc HTN -diovan now, resume metoprolol tomorrow COPD -stable FEN: NS @ 100 replete K hypokalemia full liquids in the AM Dispo: obs ms Problem List - Problem (1) Failure to thrive Code(s): [id number] - Qualifiers: Failure to thrive age range: in adult Qualified Code(s): R62.7 - Adult failure to thrive (2) Anxiety Code(s): F41.9 - ANXIETY DISORDER, UNSPECIFIED (3) Dehydration Code(s): E86.0 - DEHYDRATION (4) Hyperlipidemia Code(s): E78.5 - HYPERLIPIDEMIA, UNSPECIFIED (5) Hypokalemia Code(s): E87.6 - HYPOKALEMIA (6) Nausea and vomiting Code(s): R11.2 - NAUSEA WITH VOMITING, UNSPECIFIED Qualifiers: Vomiting type: unspecified Vomiting Intractability: non-intractable Qualified Code(s): R11.2 - Nausea with vomiting, unspecified Visit type - Emergency Visit Emergency Visit: Yes Care time: The patient presented to the Emergency Department on the above date and was hospitalized for further evaluation of their emergent condition. - New Patient This patient is new to me today: Yes Date on this admission: 06/22/17 - Critical Care Critical Care patient: No Hospitalist Screening - Colonoscopy Questionnaire Colonoscopy Questionnaire: Colonoscopy Questionnaire - Patient: 50 - 75 years old and never had a screening colonoscopy: No History of colon or rectal polyps, or CA: No History of IBD, Crohn's disease or UC: No History of abdominal radiation therapy as a child: No - Relative: 1 with colon or rectal CA, or polyps at age 60 or younger: No Colon or rectal CA diagnosed at age 45 or younger: No Multiple relatives with colon or rectal CA: No - Outcome: Screening Result: Negative Screen
[2017-06-22] MEDS ORDERED: QUEtiapine FUMARATE 25 MG TABLET (FP) PO PRN (20:20)
[2017-06-22] MEDS ORDERED: ONDANSETRON 4 MG/2 ML VIAL IVPUSH PRN (20:20)
[2017-06-22] MEDS ORDERED: SODIUM CHLORIDE 1,000 ML IV SCH (20:30)
[2017-06-22] MEDS ORDERED: VALSARTAN 80 MG TABLET (UD) ONE (21:10)
[2017-06-22] MEDS: VALSARTAN 160 MG TABLET (UD) PO SCH (21:19)
--- NOTE | 2017-06-22 21:23 | PN ---
Teaching Attending Note Name of Resident: Peyton Orlando ATTENDING PHYSICIAN STATEMENT I saw and evaluated the patient. I reviewed the resident's note and discussed the case with the resident. I agree with the resident's findings and plan as documented. SUBJECTIVE: 87 y/o female presented to the hospital for failure to thrive, associated with decrease PO intake, nausea and vomiting, lack of appettite according to the daughter the patient lost a family member recently and she is feeling a bit sad OBJECTIVE: aaox3 depressed mood s1 and s2 rrr no ext edema no abdomina distention, no tenderness lungs CTA ASSESSMENT AND PLAN: admit the patient to observation IVF food as tolerated c/w home medication antiemetic medication
[2017-06-22] MEDS ORDERED: OLANZapine 2.5 MG TABLET PO SCH (22:00)
[2017-06-22] MEDS: KCL 10 MEQ IVPB 10 MEQ/100 ML INFUS.BAG IVPB SCH ×2 (22:04→23:44)
[2017-06-23 00:09] VITALS: BMI 22.8
[2017-06-23 08:14] LABS: BASO % 1.2 % (0-2.0); EOS % 3.2 % (0-4.5); HEMATOCRIT 33.9 % (32.4-45.2); HEMOGLOBIN 11.9 GM/dL (10.7-15.3); MCH 27.9 pg (25.7-33.7); MCHC 35.1 g/dl (32.0-36.0); MEAN CELL VOLUME 79.3 fl (80-96); MEAN PLT VOLUME 7.3 fl (7.5-11.1); MONO % 4.7 % (3.8-10.2); NEUT % 45.9 % (42.8-82.8); PLATELET COUNT 225 K/MM3 (134-434); RBC 4.28 M/mm3 (3.60-5.2); RDW 14.8 % (11.6-15.6); WHITE BLOOD COUNT 8.2 K/mm3 (4.0-10.0)
[2017-06-23 08:38] LABS: ANION GAP 8 (8-16); BLOOD UREA NITROGEN 14 mg/dL (7-18); CALCIUM 8.5 mg/dL (8.5-10.1); CHLORIDE 111 mmol/L (98-107); CO2 27 mmol/L (21-32); CREATININE 0.8 mg/dL (0.55-1.02); GLUCOSE,RANDOM 86 mg/dL (74-106); MAGNESIUM 2.1 mg/dL (1.8-2.4); PHOSPHOROUS 2.6 mg/dL (2.5-4.9); POTASSIUM 3.5 mmol/L (3.5-5.1); SODIUM 146 mmol/L (136-145)
[2017-06-23] MEDS ORDERED: PT OWN MED DRAWER 7, Y5N ONE (09:38)
[2017-06-23] MEDS: VALSARTAN 160 MG TABLET (UD) PO SCH (09:38)
[2017-06-23] MEDS ORDERED: PARoxetine HCL 10 MG TABLET (FP) PO SCH (10:00)
[2017-06-23] MEDS ORDERED: metoPROLOL SUCCINATE 25 MG TAB.SR.24H (FP) PO SCH (10:00)
--- NOTE | 2017-06-23 14:16 | DS ---
Physical Exam: SUBJECTIVE: Patient seen and examined OBJECTIVE: Vital Signs Period Temp Pulse Resp BP Sys/Love Pulse Ox Last 24 Hr 98 F-98.3 F 68-80 18-20 133-163/56-77 97-100 PHYSICAL EXAM GENERAL: The patient is awake, alert, and fully oriented, in no acute distress. HEAD: Normal with no signs of trauma. EYES: PERRL, extraocular movements intact, sclera anicteric, conjunctiva clear. ENT: Ears normal, nares patent, oropharynx clear without exudates, moist mucous membranes. NECK: Trachea midline, full range of motion, supple. LUNGS: Breath sounds equal, clear to auscultation bilaterally, no wheezes, no crackles, no accessory muscle use. HEART: Regular rate and rhythm, S1, S2 without murmur, rub or gallop. ABDOMEN: Soft, nontender, nondistended, normoactive bowel sounds, no guarding, no rebound, no hepatosplenomegaly, no masses. EXTREMITIES: 2+ pulses, warm, well-perfused, no edema. NEUROLOGICAL: Cranial nerves II through XII grossly intact. Normal speech, gait not observed. PSYCH: Normal mood, normal affect. SKIN: Warm, dry, normal turgor, no rashes or lesions noted. LABS Laboratory Results - last 24 hr 06/22/17 06/22/17 06/22/17 16:55 16:55 16:55 WBC 11.5 H D RBC 4.82 Hgb 13.3 D Hct 37.7 MCV 78.3 L MCH 27.6 MCHC 35.3 RDW 15.1 Plt Count 304 D MPV 7.1 L Neutrophils % 73.2 D Lymphocytes % 22.4 D Monocytes % 3.4 L Eosinophils % 0.3 D Basophils % 0.7 PT with INR 12.50 H INR 1.11 Sodium 142 Potassium 3.3 L Chloride 109 H Carbon Dioxide 25 Anion Gap 8 BUN 16 Creatinine 1.0 Creat Clearance w eGFR 52.33 Random Glucose 136 H Calcium 9.4 Phosphorus Magnesium Total Bilirubin 0.3 D AST 20 ALT 23 Alkaline Phosphatase 82 Creatine Kinase Troponin I Total Protein 7.5 Albumin 3.8 Lipase 06/22/17 06/23/17 06/23/17 16:55 06:49 06:49 WBC 8.2 RBC 4.28 Hgb 11.9 D Hct 33.9 MCV 79.3 L MCH 27.9 MCHC 35.1 RDW 14.8 Plt Count 225 D MPV 7.3 L Neutrophils % 45.9 D Lymphocytes % 45.0 H D Monocytes % 4.7 Eosinophils % 3.2 D Basophils % 1.2 PT with INR INR Sodium 146 H Potassium 3.5 Chloride 111 H Carbon Dioxide 27 Anion Gap 8 BUN 14 Creatinine 0.8 Creat Clearance w eGFR Random Glucose 86 Calcium 8.5 Phosphorus 2.6 Magnesium 2.1 Total Bilirubin AST ALT Alkaline Phosphatase Creatine Kinase 101 Troponin I < 0.02 Total Protein Albumin Lipase 92 HOSPITAL COURSE: Date of Admission:06/22/17 Date of Discharge: 06/23/17 Discharge Summary Reason For Visit: FAILUR TO THRIVE Current Active Problems Failure to thrive (Acute) Condition: Stable - Instructions Diet, Activity, Other Instructions: Please return to the ED for any new, persistent, or worsening symptoms. Follow up with your PCP next week Continue to stay hydrated Resume home medication as directed Referrals: Kayden Mills MD [Primary Care Provider] - Disposition: HOME - Home Medications Comprehensive Discharge Medication List: Ambulatory Orders LORazepam [Ativan] 0.5 mg PO TID PRN 06/20/15 Paroxetine HCl 30 mg PO DAILY 06/20/15 Simvastatin 40 mg PO HS 06/20/15 Olanzapine [Zyprexa -] 2.5 mg PO HS tablet 06/23/15 Valsartan 160 mg PO DAILY #30 tablet 06/23/15 Metoprolol Succinate [Toprol Xl] 25 mg PO DAILY 05/20/17
[2017-06-23 14:55] VITALS: BP 120/67; PULSE 70; TEMP 98.9
--- NOTE | 2017-06-23 18:08 | EKG ---
Test Reason : Blood Pressure : / mmHG Vent. Rate : 071 BPM Atrial Rate : 071 BPM P-R Int : 156 ms QRS Dur : 080 ms QT Int : 454 ms P-R-T Axes : 066 024 062 degrees QTc Int : 493 ms NORMAL SINUS RHYTHM MINIMAL VOLTAGE CRITERIA FOR LVH, MAY BE NORMAL VARIANT NONSPECIFIC ST ABNORMALITY PROLONGED QT ABNORMAL ECG Confirmed by MD MARIN MOYSES ([id number]) on 06/23/2017 6:08:10 PM Referred By: Confirmed By:JOE MARIN MD
== END 2017-06-23 16:06 | disposition home or self-care (01) ==
LOC: JER 16:31 → JERBED 19:36 → INTOOBSV 19:36 → JERBED 19:48 → UNDOADMIN 19:48 → J8W 23:45
PROVIDERS: ADMIT Internal Medicine; ATTEND Internal Medicine
PROC: 3E0337Z Introduction of Electrolytic and Water Balance Substance into Peripheral Vein, Percutaneous Approach (ICD-10-PCS; principal; 2017-06-22)
DX: R62.7 Adult failure to thrive (principal); I10 Essential (primary) hypertension; E86.0 Dehydration; E78.5 Hyperlipidemia, unspecified; E87.6 Hypokalemia; R11.2 Nausea with vomiting, unspecified
CPT/HCPCS: 36415; 71046-TC-FY; 80048; 80053; 82550; 83690; 83735; 84100; 84484; 85025; 85610; 87086; 93005; 93010; 99282-25; G0378; J7030

== ENCOUNTER 2017-07-22 10:42 | Inpatient (IN) | payer OTHER, MEDICARE ==
[2017-07-22] MEDS ORDERED: SODIUM CHLORIDE 0.9% 1000 ML INFUS.BAG IV ONE (11:22)
[2017-07-22] MEDS ORDERED: ONDANSETRON 4 MG/2 ML VIAL IVPUSH ONE ×2 (11:22→15:05)
[2017-07-22] MEDS ORDERED: ONDANSETRON 4 MG/2 ML VIAL ONE ×2 (11:32→15:05)
[2017-07-22 11:34] LABS: BASO % 1.3 % (0-2.0); EOS % 0.4 % (0-4.5); HEMATOCRIT 39.4 % (32.4-45.2); HEMOGLOBIN 14.2 GM/dL (10.7-15.3); LYMPH % 28.4 % (8-40); MCH 28.4 pg (25.7-33.7); MCHC 36.1 g/dl (32.0-36.0); MEAN CELL VOLUME 78.7 fl (80-96); MEAN PLT VOLUME 7.1 fl (7.5-11.1); MONO % 5.2 % (3.8-10.2); NEUT % 64.7 % (42.8-82.8); PLATELET COUNT 281 K/MM3 (134-434); RBC 5.01 M/mm3 (3.60-5.2); RDW 15.1 % (11.6-15.6); WHITE BLOOD COUNT 10.5 K/mm3 (4.0-10.0)
--- NOTE | 2017-07-22 11:38 | PDOC ---
Attending Attestation - HPI HPI: 07/22/17 11:39 Patient is an PMHx of colitis 2 months ago, HTN, HLD, BPD, anxiety, and depression, who presents with nausea, intractable vomiting, generalized weakness and failure to thrive. Patient was here 1 month ago with similar symptoms. She reports that since Sunday night she has felt nauseous, she hasn 't been eating and when she tries to eat she is unable it to keep anything down. She reports recent emotional distress after her brothers passing 2 months ago. Her son states that on Sunday she went out to dinner with family friends and seemed to be fine. She reports normal BM. Denies any dysuria or hematuria. Denies fevers or chills. Denies recent falls or trauma. PCP: Kayden Mills Social Hx: Lives with her son. No h/o EtOH use. Surgical Hx: cholecystectomy (34 years ago) - Physicial Exam PE: 07/22/17 14:36 GENERAL: Awake, alert, in no acute distress HEAD: No signs of trauma EYES: PERRLA, EOMI, sclera anicteric, conjunctiva clear ENT: Auricles normal inspection, nares patent, Dry mucosa NECK: Normal ROM, supple, no lymphadenopathy, JVD, or masses LUNGS: Breath sounds equal, clear to auscultation bilaterally. No wheezes, and no crackles HEART: Irregular rate and rhythm, normal S1 and S2, no murmurs, rubs or gallops ABDOMEN: Soft, nontender, normoactive bowel sounds. No guarding, no rebound. No masses EXTREMITIES: Normal range of motion, no edema. No clubbing or cyanosis. No cords, erythema, or tenderness NEUROLOGICAL: Neuro AOx3. Strength 4/5 b/l UE . 5/5 b/l LE. Gait not tested. Normal speech SKIN: Warm, Dry, normal turgor, no rashes or lesions noted. <Michelle Alvarado - Last Filed: 07/22/17 14:36> - Resident Resident Name: Jackie Forbes - ED Attending Attestation I have performed the following: I have examined & evaluated the patient, The case was reviewed & discussed with the resident, I agree w/resident's findings & plan, Exceptions are as noted - Medical Decision Making 07/22/17 15:12 87 yo F ho depression, gastritis, recent loss of her brother who few days ago, here with c/o intractable vomiting and fatigue, decreased po intake. differential renal failure, infection such as uti, or pneumonia , hypothyroids, electrolyte abnormality, hyper or hypoglycemia. plan labs cbc lytes ekg cxr ua. ekg with new onset afib, review old ekgs no h/ o afib, per son no h/o afib. pt lives with son, states has not been out of bed last few days.difficult to ambulate due to severe weaknesss. will require admission for new onset afib, severe weaknesss. mild hypokalemia, repleted. admit to tele dr. abarca. <Lynda Bloom - Last Filed: 07/22/17 16:50> Heart Score/ECG Review #2 ECG reviewed & interpreted by me at: 16:48 General ECG Interpretation: Sinus Rhythm, Normal Rate (76), Normal Intervals, No acute ischemic changes Compared to previous ECG there are: Other (atrial fibrillation, no st t wave changes.) <Lynda Bloom - Last Filed: 07/22/17 16:50>
--- NOTE | 2017-07-22 11:58 | PDOC ---
History of Present Illness - General Chief Complaint: Nausea/Vomiting Stated Complaint: VOMITING Time Seen by Provider: 07/22/17 11:31 History Source: Patient, Family - History of Present Illness Initial Comments: 07/22/17 12:32 Patient is an 87 year old female with a PMH of HTN, HLD, BPD, Anxiety and depression who presents to our ED today c/o 3 day h/o vomiting and generalized weakness. Notes 5-6 episodes of NBNB emesis with inability to tolerate PO intake. Denies any abdominal cramping, diarrhea/constipation. Notes last BM was earlier today prior to presentation and was normal. Notes a h/o of life stressors including the of her brother two months previous. Son @ bedside notes she had dinner with family friends the evening previous to symptom onset and was at her baseline. Patient denies chest pain, shortness of breath. Patient denies any recent falls, trauma, medication changes. Patient denies fever, chills, abdominal pain, nausea, vomit, diarrhea or constipation. Patient denies dysuria, frequency, urgency or hematuria. Patient denies sick contacts or recent travel. NKDA Surgical: cholecystectomy @ age 53 Social: lifetime non-smoker, denies alcohol As per EMR patient evaluated in our facility in 05/2017 for similar symptoms at which time she was given supportive care and discharged home. Past History - Past Medical History Allergies/Adverse Reactions: Allergies Allergy/AdvReac Type Severity Reaction Status Date / Time No Known Allergies Allergy Verified 07/22/17 10:44 Home Medications: Ambulatory Orders LORazepam [Ativan] 0.5 mg PO TID PRN 06/20/15 Paroxetine HCl 30 mg PO DAILY 06/20/15 Simvastatin 40 mg PO HS 06/20/15 Olanzapine [Zyprexa -] 2.5 mg PO HS tablet 06/23/15 Valsartan 160 mg PO DAILY #30 tablet 06/23/15 Metoprolol Succinate [Toprol Xl] 25 mg PO DAILY 05/20/17 Pantoprazole Sodium [Protonix -] 40 mg PO DAILY #30 tablet.ec 07/26/17 COPD: Yes HTN: Yes Hypercholesterolemia: Yes Psychiatric Problems: Yes (ANXIETY) - Surgical History Cholecystectomy: Yes - Immunization History Immunization Up to Date: Yes - Suicide/Smoking/Psychosocial Hx Smoking History: Never smoked Have you smoked in the past 12 months: No Information on smoking cessation initiated: No Hx Alcohol Use: No Drug/Substance Use Hx: No Substance Use Type: None Hx Substance Use Treatment: No Review of Systems - Review of Systems Constitutional: No: Chills, Fever HEENTM: No: Recent change in vision Respiratory: No: Cough, Shortness of Breath Cardiac (ROS): No: Chest Pain, Lightheadedness, Palpitations, Syncope ABD/GI: Yes: Nausea, Poor Fluid Intake, Vomiting. No: Blood Streaked Bowels, Constipated, Diarrhea, Rectal Bleeding, Tarry Stools : No: Burning, Dysuria Neurological: No: Headache, Numbness, Paresthesia, Tingling, Tremors Psychiatric: Yes: Anxiety, Depression, Stressors *Physical Exam - Vital Signs Last Vital Signs Temp Pulse Resp BP Pulse Ox 97.3 F L 100 H 18 147/77 95 07/22/17 10:44 07/22/17 10:44 07/22/17 10:44 07/22/17 10:44 07/22/17 10:44 - Physical Exam General Appearance: Yes: Nourished, Thin HEENT: positive: EOMI, MARLENE. negative: Pale Conjunctivae, Pharyngeal Erythema, Tonsillar Exudate, Tonsillar Erythema, TM Bulging, TM Dull, TM Erythema Neck: positive: Trachea midline, Normal Thyroid, Supple. negative: Lymphadenopathy (R), Lymphadenopathy (L) Respiratory/Chest: positive: Lungs Clear, Normal Breath Sounds Cardiovascular: positive: S1, S2. negative: Edema, JVD Vascular Pulses: Dorsalis-Pedis (R): 2+, Doralis-Pedis (L): 2+ Gastrointestinal/Abdominal: positive: Normal Bowel Sounds, Soft Musculoskeletal: negative: CVA Tenderness (R), CVA Tenderness (L) Extremity: positive: Normal Capillary Refill, Normal Inspection Integumentary: positive: Normal Color, Dry, Warm Neurologic: positive: licensed audiologist II-XII NML intact, Fully Oriented, Alert Deep Tendon Reflexes: Knee (L): 2+, Knee (R): 2+ ED Treatment Course - LABORATORY CBC & Chemistry Diagram: 07/26/17 06:00 07/26/17 06:00 - ADDITIONAL ORDERS Additional order review: 07/22/17 11:24 RBC 5.01 MCV 78.7 L MCHC 36.1 H RDW 15.1 MPV 7.1 L Neutrophils % 64.7 D Lymphocytes % 28.4 D Monocytes % 5.2 Eosinophils % 0.4 D Basophils % 1.3 - Medications Given in the ED: ED Medications Discontinued Medications Generic Name Dose Route Start Last Admin Trade Name Jermain PRN Reason Stop Dose Admin Ondansetron HCl 4 mg 07/22/17 11:22 07/22/17 11:39 Zofran Injection IVPUSH 07/22/17 11:23 4 mg ONCE ONE Administration Sodium Chloride 1,000 ml 07/22/17 11:22 07/22/17 11:39 Normal Saline - IV 07/22/17 11:23 1,000 ml ONCE ONE Administration Medical Decision Making - Medical Decision Making 07/22/17 12:33 87 year old female presents to ED c/o 5 day h/o decreased appetite. Frontal diagnosis includes electrolyte derangement, infection (including UTI, PNA), hypoglycemia, failure to thrive. Low clinical suspicion for acute abdomen including SBO, mesenteric ischemia, acute appy, cholecystitis. ECG shows AFib HR 97 not c/w with prior ECG dated 06/22. Patient will require admission for new onset AFib, will plan for admission once labs r/o other path. 07/22/17 13:46 Patient tolerated PO intake. K+ 3.1 - will replete. TSH pending. 07/22/17 14:11 Patient admitted to OBS Tele under Dr. Mahan. Patient and patient's son counseled on POC. Will continue to monitor while in ED. *DC/Admit/Observation/Transfer Diagnosis at time of Disposition: Atrial fibrillation - Discharge Dispostion Admit: Yes - Prescriptions - Referrals - Patient Instructions - Post Discharge Activity
[2017-07-22 12:13] LABS: ALBUMIN 3.9 g/dl (3.4-5.0); ALK PHOS 97 U/L (45-117); ANION GAP 7 (8-16); BILIRUBIN,TOTAL 0.7 mg/dL (0.2-1.0); BLOOD UREA NITROGEN 21 mg/dL (7-18); CALCIUM 9.4 mg/dL (8.5-10.1); CHLORIDE 112 mmol/L (98-107); CO2 24 mmol/L (21-32); GLUCOSE,RANDOM 133 mg/dL (74-106); POTASSIUM 3.1 mmol/L (3.5-5.1); SGOT/AST 39 U/L (15-37); SGPT/ALT 43 U/L (12-78); SODIUM 143 mmol/L (136-145)
[2017-07-22 12:42] LABS: LIPASE 234 U/L (73-393)
[2017-07-22 13:17] LABS: N-TERMINAL BNP 567.73 pg/ml (5-450)
[2017-07-22 13:26] LABS: INR 1.15 (0.82-1.09)
[2017-07-22 13:28] LABS: ACTIVATED PTT 31.9 SECONDS (26.9-34.4)
[2017-07-22] MEDS ORDERED: POTASSIUM CHLORIDE ORAL LIQUID 20 MEQ/15 ML PO ONE (13:45)
[2017-07-22] MEDS ORDERED: POTASSIUM CHLORIDE TABS 20 MEQ TABLET.ER (FP) PO ONE (13:53)
[2017-07-22 15:50] LABS: URINE APPEARANCE CLOUDY; URINE BILIRUBIN NEGATIVE (<2.0 mg/dL); URINE COLOR YELLOW; URINE GLUCOSE (UA) NEGATIVE (NEGATIVE); URINE KETONE NEGATIVE (NEGATIVE); URINE NITRITE NEGATIVE (NEGATIVE)
[2017-07-22 15:53] LABS: URINE LEUK ESTERASE 2+ (NEGATIVE); URINE PROTEIN 1+ (NEGATIVE)
[2017-07-22 15:58] LABS: EPI CELLS FEW /HPF (FEW); URINE MUCUS MANY
[2017-07-22 16:55] VITALS: BMI 23.3
--- NOTE | 2017-07-22 17:08 | HP ---
CHIEF COMPLAINT: Nausea, vomiting PCP: Dr. Mills HISTORY OF PRESENT ILLNESS: This is an 87 year old female with PMHx of colitis, HTN, COPD, FTT, who presented to the ED with nausea, vomiting and weakness x4 days and now has developed diarrhea with BRBPR since arriving in the ED. The patient's son reports the patient has had past episodes of nausea and vomiting x 1 month since her son . The patient states the nausea began on Sunday and then on she developed vomiting. The patient reports that she is unable to keep any foods down. She denies any sick contacts. She denies any fever, chills , urinary symptoms, chest pain, palpitations, headache, syncope, dizziness. ER course was notable for: (1) EKG with a.fib (2) WBC 10.5 (3) K 3.1, repleted in the ED Recent Travel: denies PAST MEDICAL HISTORY: as above PAST SURGICAL HISTORY: Cholecystectomy "many years ago" Social History: Smoking: denies Alcohol: denies Drugs: denies Family History: Allergies No Known Allergies Allergy (Verified 07/22/17 10:44) HOME MEDICATIONS: Home Medications Medication Instructions Recorded LORazepam [Ativan] 0.5 mg PO TID PRN 06/20/15 Paroxetine HCl 30 mg PO DAILY 06/20/15 Simvastatin 40 mg PO HS 06/20/15 Olanzapine [Zyprexa -] 2.5 mg PO HS tablet 06/23/15 Valsartan 160 mg PO DAILY #30 tablet 06/23/15 Metoprolol Succinate [Toprol Xl] 25 mg PO DAILY 05/20/17 REVIEW OF SYSTEMS CONSTITUTIONAL: Weakness that began 4 days ago Absent: fever, chills, diaphoresis, malaise, loss of appetite, weight change HEENT: Absent: rhinorrhea, nasal congestion, throat pain, throat swelling, difficulty swallowing, mouth swelling, ear pain, eye pain, visual changes CARDIOVASCULAR: New onset a.fib here in ED Absent: chest pain, syncope, palpitations, lightheadedness, peripheral edema RESPIRATORY: Absent: cough, shortness of breath, dyspnea with exertion, orthopnea, wheezing, stridor, hemoptysis GASTROINTESTINAL: Nausea that began on Sunday, vomiting that began on , diarrhea and BRBPR that began in the ED today Absent: abdominal pain, abdominal distension, constipation, hematochezia GENITOURINARY: Absent: dysuria, frequency, urgency, hesitancy, hematuria, flank pain, genital pain MUSCULOSKELETAL: Absent: myalgia, arthralgia, joint swelling, back pain, neck pain SKIN: Absent: rash, itching, pallor HEMATOLOGIC/IMMUNOLOGIC: Absent: easy bleeding, easy bruising, lymphadenopathy, frequent infections ENDOCRINE: Absent: unexplained weight gain, unexplained weight loss, heat intolerance, cold intolerance NEUROLOGIC: Absent: headache, focal weakness or paresthesias, dizziness, unsteady gait, seizure, mental status changes, bladder or bowel incontinence PSYCHIATRIC: Absent: anxiety, depression, suicidal or homicidal ideation, hallucinations. PHYSICAL EXAMINATION Vital Signs - 24 hr 07/22/17 07/22/17 07/22/17 10:44 14:45 15:22 Temperature 97.3 F L Pulse Rate 100 H 74 Pulse Rate [ 84 Apical] Respiratory 18 21 18 Rate Blood Pressure 147/77 116/59 Blood Pressure 135/74 [Right Arm] O2 Sat by Pulse 95 96 99 Oximetry (%) GENERAL: Awake, alert, and fully oriented, in no acute distress. HEAD: Normal with no signs of trauma. EYES: Pupils equal, round and reactive to light, extraocular movements intact, sclera anicteric, conjunctiva clear. EARS, NOSE, THROAT: Ears normal, nares patent, oropharynx clear without exudates. Moist mucous membranes. NECK: Normal range of motion, supple LUNGS: Breath sounds equal, clear to auscultation bilaterally. No wheezes, and no crackles. No accessory muscle use. HEART: Irregular pulse, normal S1 and S2 ABDOMEN: Soft, nontender, not distended, normoactive bowel sounds MUSCULOSKELETAL: Normal range of motion at all joints. No bony deformities or tenderness. No CVA tenderness. UPPER EXTREMITIES: 2+ pulses, warm, well-perfused. No cyanosis. No clubbing. No peripheral edema. LOWER EXTREMITIES: 2+ pulses, warm, well-perfused. No calf tenderness. No peripheral edema. NEUROLOGICAL: Cranial nerves II-XII intact. Normal speech. Normal gait. PSYCHIATRIC: Cooperative. Good eye contact. Appropriate mood and affect. SKIN: Warm, dry, normal turgor, no rashes or lesions noted, normal capillary refill. Laboratory Results - last 24 hr 07/22/17 07/22/17 07/22/17 11:24 11:24 12:28 WBC 10.5 H RBC 5.01 Hgb 14.2 D Hct 39.4 D MCV 78.7 L MCH 28.4 MCHC 36.1 H RDW 15.1 Plt Count 281 D MPV 7.1 L Neutrophils % 64.7 D Lymphocytes % 28.4 D Monocytes % 5.2 Eosinophils % 0.4 D Basophils % 1.3 PT with INR 13.00 INR 1.15 H PTT (Actin FS) 31.9 Sodium 143 Potassium 3.1 L Chloride 112 H Carbon Dioxide 24 Anion Gap 7 L BUN 21 H Creatinine 1.0 Creat Clearance w eGFR 52.33 Random Glucose 133 H Calcium 9.4 Total Bilirubin 0.7 D AST 39 H ALT 43 Alkaline Phosphatase 97 Creatine Kinase Creatine Kinase Index CK-MB (CK-2) Troponin I B-Natriuretic Peptide Total Protein 8.0 Albumin 3.9 Lipase 234 TSH 1.26 Urine Color Urine Appearance Urine pH Ur Specific [place] Urine Protein Urine Glucose (UA) Urine Ketones Urine Blood Urine Nitrite Urine Bilirubin Urine Urobilinogen Ur Leukocyte Esterase Urine WBC (Auto) Urine RBC (Auto) Ur Epithelial Cells Urine Mucus 07/22/17 07/22/17 12:28 15:39 WBC RBC Hgb Hct MCV MCH MCHC RDW Plt Count MPV Neutrophils % Lymphocytes % Monocytes % Eosinophils % Basophils % PT with INR INR PTT (Actin FS) Sodium Potassium Chloride Carbon Dioxide Anion Gap BUN Creatinine Creat Clearance w eGFR Random Glucose Calcium Total Bilirubin AST ALT Alkaline Phosphatase Creatine Kinase 354 H Creatine Kinase Index 1.0 CK-MB (CK-2) 3.893 H Troponin I 0.02 B-Natriuretic Peptide 567.73 H Total Protein Albumin Lipase TSH Urine Color Yellow Urine Appearance Cloudy Urine pH 6.0 Ur Specific [place] 1.018 Urine Protein 1+ H Urine Glucose (UA) Negative Urine Ketones Negative Urine Blood Negative Urine Nitrite Negative Urine Bilirubin Negative Urine Urobilinogen 2.0 H Ur Leukocyte Esterase 2+ H Urine WBC (Auto) 130 Urine RBC (Auto) 4 Ur Epithelial Cells Few Urine Mucus Many Assessment: This is an 87 year old female with PMHx of colitis, HTN, COPD, FTT, who presented to the ED with nausea, vomiting and weakness x4 days and now has developed diarrhea with BRBPR since arriving in the ED. Plan: 1) Nausea, vomiting - No Zofran, prolonged qtc - CL diet as tolerated - Pepcid - IV fluids 2) Diarrhea, BRBPR - Monitor cbc - Patient has history of hemorrhoids, likely that - F/u stool cultures - F/u GI consult 3) New onset a.fib - Patient denies a hx of arrhythmia - Cardiac monitoring - Will hold off on starting anticoagulation at this time given active bleeding ( BRBPR). Informed patient and son of risks associated with holding anticoagulation for a.fib and the risks associated with starting anticoagulation while the patient has active bleeding. The son and patient would like to hold off on beginning anticoagulation at this time - F/u cardiology consult 4) UTI - F/u urine culture - Will start Ceftriaxone 1g IVPB daily 5) COPD - No evidence of acute COPD exacerbation 6) F/E/N: - IV fluids - Clear liquid diet - Hyperkalemia: repleted in ED 7) Prophylaxis: - OOB ambulating - SCDs bilaterally - Hold all chemical DVT prophylaxis 2/2 acute bleed (BRBPR) 8) Dispo: - Requires continued inpatient care CODE STATUS: FULL CODE Visit type - Emergency Visit Emergency Visit: Yes ED Registration Date: 07/22/17 Care time: The patient presented to the Emergency Department on the above date and was hospitalized for further evaluation of their emergent condition. - New Patient This patient is new to me today: Yes Date on this admission: 07/22/17 - Critical Care Critical Care patient: No Hospitalist Screening - Colonoscopy Questionnaire Colonoscopy Questionnaire: Colonoscopy Questionnaire - Patient: 50 - 75 years old and never had a screening colonoscopy: No (Had a colonoscopy more than 10 years ago) History of colon or rectal polyps, or CA: Unknown History of IBD, Crohn's disease or UC: Unknown History of abdominal radiation therapy as a child: Unknown - Relative: 1 with colon or rectal CA, or polyps at age 60 or younger: Unknown Colon or rectal CA diagnosed at age 45 or younger: Unknown Multiple relatives with colon or rectal CA: Unknown - Outcome: Screening Result: Negative Screen
[2017-07-22] MEDS: SODIUM CHLORIDE 1,000 ML IV SCH (18:22)
[2017-07-22 18:36] LABS: HEMOGLOBIN 13.4 GM/dL (10.7-15.3); MCH 28.1 pg (25.7-33.7); MCHC 35.3 g/dl (32.0-36.0); MEAN CELL VOLUME 79.6 fl (80-96); MEAN PLT VOLUME 7.3 fl (7.5-11.1); PLATELET COUNT 257 K/MM3 (134-434); RBC 4.78 M/mm3 (3.60-5.2); WHITE BLOOD COUNT 11.3 K/mm3 (4.0-10.0)
[2017-07-22] MEDS ORDERED: METOCLOPRAMIDE HCL INJECTION 10 MG/2 ML VIAL IVPUSH ONE (19:30)
--- NOTE | 2017-07-22 21:46 | CON.GI ---
Consult Consult Specialty:: Gastroenterology Referred by:: Zara Anthony NP Reason for Consultation:: Nausea and vomiting - History of Present Illness Chief Complaint: Nausea and vomiting since yesterday History of Present Illness: 87F is admitted for nausea and vomiting that developed yesterday. No hematemesis reported. Shelli denies abdominal pain or fever. She was admited on with similar complaints but also had diarrhea and then her CT scan suggested colitis of the transverse and descending colon. Diverticulosis and a fatty liver were also noted. She had a colonoscopy with Dr. Alcantar on 08/26/17 when moderate sigmoid diverticulosis was noted. His colonoscopy reports a FH of colon cancer. Shelli recalls that her brother had a GI cancer but is no longer sure whether it was colon or gastric. She denies diarrhea but instead c/o being constipated. She last had a BM 2 night ago. She is a retired RN. - History Source History Provided By: Patient, Medical Record Limitations to Obtaining History: Other (forgetful) - Past Medical History Cardio/Vascular: Yes: HTN, Hyperlipdemia Pulmonary: Yes: Pulmonary Embolus Gastrointestinal: Yes: Diverticulosis Hepatobiliary: Yes: Other (fatty liver) Psych: Yes: Anxiety, Bipolar, Depression - Past Surgical History Past Surgical History: Yes: Cataract Removal, Cholecystectomy (open), Tonsillectomy - Alcohol/Substance Use Hx Alcohol Use: No History of Substance Use: reports: None - Smoking History Smoking history: Never smoked Have you smoked in the past 12 months: No - Social History Usual Living Arrangement: With Child ADL: Independent Occupation: Retired RN Place of : Other ([employer]) Came to [place]year[place] 1955 History of Recent Travel: No Home Medications - Allergies Allergies/Adverse Reactions: Allergies Allergy/AdvReac Type Severity Reaction Status Date / Time No Known Allergies Allergy Verified 07/22/17 10:44 - Home Medications Home Medications: Ambulatory Orders LORazepam [Ativan] 0.5 mg PO TID PRN 06/20/15 Paroxetine HCl 30 mg PO DAILY 06/20/15 Simvastatin 40 mg PO HS 06/20/15 Olanzapine [Zyprexa -] 2.5 mg PO HS tablet 06/23/15 Valsartan 160 mg PO DAILY #30 tablet 06/23/15 Metoprolol Succinate [Toprol Xl] 25 mg PO DAILY 05/20/17 Family Disease History - Family Disease History Family Disease History: Other: Father (: 90: old age), Mother (: 88 old age), Brother (2, both from cancer: one had stomach vs colon cancer, the other she could not remember) Review of Systems - Review of Systems Constitutional: reports: Fever (denies), Loss of Appetite, Weakness Eyes: reports: No Symptoms HENT: reports: No Symptoms Neck: reports: No Symptoms Cardiovascular: reports: No Symptoms Respiratory: reports: SOB on Exertion Gastrointestinal: reports: Constipation, Nausea, Vomiting Musculoskeletal: reports: Joint Pain Physical Exam-GI Vital Signs: Vital Signs Temperature 98.0 F 07/22/17 18:14 Pulse Rate 75 07/22/17 18:14 Respiratory Rate 20 07/22/17 18:15 Blood Pressure 110/53 07/22/17 18:14 O2 Sat by Pulse Oximetry (%) 99 07/22/17 18:15 CBC,CMP WBC 11.3 K/mm3 (4.0-10.0) H 07/22/17 18:25 RBC 4.78 M/mm3 (3.60-5.2) 07/22/17 18:25 Hgb 13.4 GM/dL (10.7-15.3) 07/22/17 18:25 Hct 38.0 % (32.4-45.2) 07/22/17 18:25 MCV 79.6 fl (80-96) L 07/22/17 18:25 MCH 28.1 pg (25.7-33.7) 07/22/17 18:25 MCHC 35.3 g/dl (32.0-36.0) 07/22/17 18:25 RDW 15.0 % (11.6-15.6) 07/22/17 18:25 Plt Count 257 K/MM3 (134-434) 07/22/17 18:25 MPV 7.3 fl (7.5-11.1) L 07/22/17 18:25 Neutrophils % 64.7 % (42.8-82.8) D 07/22/17 11:24 Lymphocytes % 28.4 % (8-40) D 07/22/17 11:24 Monocytes % 5.2 % (3.8-10.2) 07/22/17 11:24 Eosinophils % 0.4 % (0-4.5) D 07/22/17 11:24 Basophils % 1.3 % (0-2.0) 07/22/17 11:24 Sodium 143 mmol/L (136-145) 07/22/17 11:24 Potassium 3.1 mmol/L (3.5-5.1) L 07/22/17 11:24 Chloride 112 mmol/L (98-107) H 07/22/17 11:24 Carbon Dioxide 24 mmol/L (21-32) 07/22/17 11:24 Anion Gap 7 (8-16) L 07/22/17 11:24 BUN 21 mg/dL (7-18) H 07/22/17 11:24 Creatinine 1.0 mg/dL (0.55-1.02) 07/22/17 11:24 Creat Clearance w eGFR 52.33 (>60) 07/22/17 11:24 Random Glucose 133 mg/dL (74-106) H 07/22/17 11:24 Calcium 9.4 mg/dL (8.5-10.1) 07/22/17 11:24 Total Bilirubin 0.7 mg/dL (0.2-1.0) D 07/22/17 11:24 AST 39 U/L (15-37) H 07/22/17 11:24 ALT 43 U/L (12-78) 07/22/17 11:24 Alkaline Phosphatase 97 U/L (45-117) 07/22/17 11:24 Creatine Kinase 354 IU/L (26-192) H 07/22/17 12:28 Creatine Kinase Index 1.0 % (0.0-5.0) 07/22/17 12:28 CK-MB (CK-2) 3.893 ng/mL (0.5-3.6) H 07/22/17 12:28 Troponin I 0.02 ng/ml (0.00-0.05) 07/22/17 12:28 B-Natriuretic Peptide 567.73 pg/ml (5-450) H 07/22/17 12:28 Total Protein 8.0 g/dl (6.4-8.2) 07/22/17 11:24 Albumin 3.9 g/dl (3.4-5.0) 07/22/17 11:24 Lipase 234 U/L (73-393) 07/22/17 11:24 TSH 1.26 uIU/ml (0.358-3.74) 07/22/17 11:24 Current Medications Generic Name Dose Route Start Last Admin Trade Name Freq PRN Reason Stop Dose Admin Atorvastatin Calcium 20 mg 07/22/17 22:00 Lipitor - PO HS MOHIT Ceftriaxone Sodium 1 gm/ 50 mls @ 100 mls/hr 07/22/17 17:30 Dextrose IVPB DAILY MOHIT Protocol Famotidine/Sodium Chloride 20 mg in 50 mls @ 100 mls/hr 07/22/17 22:00 Pepcid 20 Mg Premixed Ivpb - IVPB BID MOHIT Sodium Chloride 1,000 mls @ 83 mls/hr 07/22/17 17:30 07/22/17 18:22 Normal Saline - IV 83 mls/hr ASDIR MOHIT Administration Lorazepam 0.5 mg 07/22/17 16:47 Ativan - PO TID PRN ANXIETY Metoprolol Succinate 25 mg 07/23/17 10:00 Toprol Xl - PO DAILY MOHIT Valsartan 160 mg 07/23/17 10:00 Diovan - PO DAILY MOHIT Constitutional: Yes: No Distress Eyes: Yes: Conjunctiva Clear HENT: Yes: Atraumatic Neck: Yes: Supple Cardiovascular: Yes: Regular Rate and Rhythm Respiratory: Yes: CTA Bilaterally Gastrointestinal Inspection: Yes: Hernia (nontender umbilical hernia), Scars ( healed RUQ incision) ...Auscultate: Yes: Normoactive Bowel Sounds ...Palpate: Yes: Mass (right lateral baseball sized ballotable mass), Soft, Other (nontender) ...Percussion: Yes: Tympanitic ...Rectal Exam: Yes: Guaiac Negative, Sphincter Tone Normal Labs: CBC, BMP 07/22/17 18:25 07/22/17 11:24 INR, PTT INR 1.15 (0.82-1.09) H 07/22/17 12:28 Problem List - Problems (1) Nausea and vomiting Assessment/Plan: Unfortunately there is no imaging done. The abdominal findings do not suggest bowel or gastric outlet obstruction but I will obtain an FUA in AM. She may have a high fecal impaction causing this. Given her suspected FH of colon cancer and the palpable mass a repeat colonoscopy may be in order. I will obtain a sonogram of this mass. If her symptoms resolve a viral gastroenteritis may be implicated. Code(s): R11.2 - NAUSEA WITH VOMITING, UNSPECIFIED Qualifiers: Vomiting type: unspecified Vomiting Intractability: non-intractable Qualified Code(s): R11.2 - Nausea with vomiting, unspecified (2) Constipation Code(s): K59.00 - CONSTIPATION, UNSPECIFIED (3) Mass in the abdomen Assessment/Plan: This mass is soft and easily movable arguing against malignancy. A sonogram will be obtained but if unrevealing a CT will need to be repeated. She may ultimately need a colonoscopy to exclude a right colon neoplasm. It mobility suggests it may be based in the mesentery. Code(s): R19.00 - INTRA-ABD AND PELVIC SWELLING, MASS AND LUMP, UNSP SITE (4) Umbilical hernia without mention of obstruction or gangrene Code(s): K42.9 - UMBILICAL HERNIA WITHOUT OBSTRUCTION OR GANGRENE
[2017-07-22] MEDS: FAMOTIDINE 20 MG/50 ML IVPB 20 MG/50 ML MG IVPB SCH (21:51)
[2017-07-22] MEDS: LORazepam 0.5 MG TABLET PO PRN (21:51)
[2017-07-22] MEDS: ATORVASTATIN CA 20 MG TABLET (FP) PO SCH (21:51)
[2017-07-22] MEDS: CEFTRIAXONE 1 GM in DEXTROSE 5%-WATER - 50 ML IVPB SCH (21:58)
[2017-07-22] MEDS ORDERED: OLANZapine 2.5 MG TABLET PO SCH (22:00)
[2017-07-23 06:30] LABS: BASO % 1.3 % (0-2.0); EOS % 1.9 % (0-4.5); HEMATOCRIT 35.3 % (32.4-45.2); HEMOGLOBIN 12.6 GM/dL (10.7-15.3); LYMPH % 39.3 % (8-40); MCH 28.7 pg (25.7-33.7); MCHC 35.7 g/dl (32.0-36.0); MEAN CELL VOLUME 80.3 fl (80-96); MEAN PLT VOLUME 7.4 fl (7.5-11.1); MONO % 5.1 % (3.8-10.2); NEUT % 52.4 % (42.8-82.8); PLATELET COUNT 230 K/MM3 (134-434); RDW 15.2 % (11.6-15.6); WHITE BLOOD COUNT 7.8 K/mm3 (4.0-10.0)
[2017-07-23 07:11] LABS: ALBUMIN 3.5 g/dl (3.4-5.0); ANION GAP 8 (8-16); BLOOD UREA NITROGEN 21 mg/dL (7-18); CALCIUM 8.5 mg/dL (8.5-10.1); CHLORIDE 112 mmol/L (98-107); CO2 24 mmol/L (21-32); CREATININE 1.1 mg/dL (0.55-1.02); GLUCOSE,RANDOM 91 mg/dL (74-106); POTASSIUM 3.6 mmol/L (3.5-5.1); SGOT/AST 38 U/L (15-37); SGPT/ALT 39 U/L (12-78); SODIUM 144 mmol/L (136-145)
[2017-07-23 07:13] LABS: ALK PHOS 77 U/L (45-117); BILIRUBIN,TOTAL 0.6 mg/dL (0.2-1.0)
[2017-07-23 08:09] LABS: AMYLASE 42 U/L (25-115); LIPASE 153 U/L (73-393)
[2017-07-23] MEDS ORDERED: DEXTROSE 5%-WATER - 50 ML IVPB ONE (09:39)
[2017-07-23] MEDS ORDERED: cefTRIAXone SODIUM 1 GM VIAL ONE (09:39)
[2017-07-23] MEDS ORDERED: PARoxetine HCL 30 MG TABLET PO SCH (10:00)
[2017-07-23] MEDS ORDERED: PAROXETINE HCL 20 MG, PAROXETINE HCL 10 MG PO SCH (10:00)
[2017-07-23] MEDS: FAMOTIDINE 20 MG/50 ML IVPB 20 MG/50 ML MG IVPB SCH ×2 (10:01→21:55)
[2017-07-23] MEDS: metoPROLOL SUCCINATE 25 MG TAB.SR.24H (FP) PO SCH (10:02)
[2017-07-23] MEDS: CEFTRIAXONE 1 GM in DEXTROSE 5%-WATER - 50 ML IVPB SCH (10:02)
[2017-07-23] MEDS: VALSARTAN 160 MG TABLET (UD) PO SCH (10:02)
--- NOTE | 2017-07-23 10:14 | CON.CARD ---
Consult Consult Specialty:: cardio - History of Present Illness Chief Complaint: afib History of Present Illness: 87 female here with nausea, vomiting, diarrhea. similar sx's attributed to colitis on CT imaging on prior admit. seen by GI--w/u ongoing. bloody diarrhea reported in hospitalist note. afib noted on ER ekg--AC held in light of recent bloody diarrhea. review of that ekg shows NO AFIB--ONLY SINUS WITH FREQUENT APCS denies palpitations. no cp or sob including at home--walks up stairs no problem PMH: HTN copd colitis - Past Medical History Cardio/Vascular: Yes: HTN, Hyperlipdemia Pulmonary: Yes: Pulmonary Embolus Gastrointestinal: Yes: Diverticulosis Hepatobiliary: Yes: Other (fatty liver) Psych: Yes: Anxiety, Bipolar, Depression - Past Surgical History Past Surgical History: Yes: Cataract Removal, Cholecystectomy (open), Tonsillectomy - Alcohol/Substance Use Hx Alcohol Use: No History of Substance Use: reports: None - Smoking History Smoking history: Never smoked Have you smoked in the past 12 months: No - Social History Usual Living Arrangement: With Child ADL: Independent Occupation: Retired RN History of Recent Travel: No Home Medications - Allergies Allergies/Adverse Reactions: Allergies Allergy/AdvReac Type Severity Reaction Status Date / Time No Known Allergies Allergy Verified 07/22/17 10:44 - Home Medications Home Medications: Ambulatory Orders LORazepam [Ativan] 0.5 mg PO TID PRN 06/20/15 Paroxetine HCl 30 mg PO DAILY 06/20/15 Simvastatin 40 mg PO HS 06/20/15 Olanzapine [Zyprexa -] 2.5 mg PO HS tablet 06/23/15 Valsartan 160 mg PO DAILY #30 tablet 06/23/15 Metoprolol Succinate [Toprol Xl] 25 mg PO DAILY 05/20/17 Family Disease History - Family Disease History Family Disease History: Other: Father (: 90: old age), Mother (: 88 old age), Brother (2, both from cancer: one had stomach vs colon cancer, the other she could not remember) Review of Systems - Review of Systems Constitutional: denies: Chills, Fever Eyes: denies: Eye Pain HENT: denies: Nasal Congestion Neck: denies: Stiffness Cardiovascular: denies: Palpitations Respiratory: denies: Orthopnea, PND Gastrointestinal: reports: Diarrhea. denies: Rectal Bleeding, Vomiting Blood Genitourinary: denies: Burning, Hematuria Musculoskeletal: denies: Muscle Pain Integumentary: denies: Rash Neurological: denies: Numbness, Seizure, Syncope Endocrine: denies: Excessive Sweating Hematology/Lymphatic: denies: Excessive Bleeding Vital Signs: Vital Signs Temperature 98.8 F 07/23/17 07:53 Pulse Rate 90 07/23/17 07:53 Respiratory Rate 20 07/23/17 07:53 Blood Pressure 143/76 07/23/17 07:53 O2 Sat by Pulse Oximetry (%) 96 07/23/17 07:53 Constitutional: Yes: Well Nourished, No Distress Eyes: No: Sclera Icterus HENT: No: Nasal Congestion Neck: No: Decreased ROM Respiratory: Yes: CTA Bilaterally. No: Accessory Muscle Use, Rales, Wheezes Gastrointestinal: Yes: Normal Bowel Sounds. No: Distention, Hepatomegaly, Palpable Mass, Tenderness Cardiovascular: Yes: Regular Rate and Rhythm JVD: No Carotid Bruit: No PMI: Non-Displaced Heart Sounds: Yes: S1, S2. No: Gallop Murmur: Yes: Systolic Murmur (1-2/6 early IDANN lusb). No: Diastolic Murmur Musculoskeletal: Yes: Other (No kyphosis) Extremities: No: Cold, Cyanosis Edema: No Peripheral Pulses: 2+ Left Carotid, 2+ Right Carotid, 2+ Left Doralis Pedis, 2+ Right Dorsalis Pedis Integumentary: No: Jaundice Neurological: Yes: Alert, Oriented (x3) Psychiatric: No: Agitated - Other Data Labs, Other Data: CBC, BMP 07/23/17 06:10 07/23/17 06:10 INR, PTT INR 1.15 (0.82-1.09) H 07/22/17 12:28 Troponin, BNP 07/22/17 12:28 Troponin I 0.02 B-Natriuretic Peptide 567.73 H Troponin, BNP 07/22/17 12:28 Troponin I 0.02 B-Natriuretic Peptide 567.73 H Laboratory Tests 07/22/17 07/23/17 07/23/17 12:28 06:10 06:10 WBC 7.8 D Hgb 12.6 Plt Count 230 Sodium 144 Potassium 3.6 Carbon Dioxide 24 BUN 21 H Creatinine 1.1 H AST 38 H ALT 39 Troponin I 0.02 B-Natriuretic Peptide 567.73 H Assessment/Plan CXR--clear lungs/pleura, +ATX ECG 07/22 (11:29): NSR with frequent APCs. long QT. no path q's or ST-T abn ECG 07/22 (16:30): NSR, normal axis. long QT. no path q's, no ST-T abn afib: -erroneous computer dx on ekg--actually sinus with freq apcs -tele reviewed--no afib thus far. -cont tele monitoring prolonged QT/abnrl EKG: -QT 490-500 range stable since 05/13 (normal on 2015 ecg's)--possibly secondary to prn zofran doses (given here this time, ? last time as well). -would not use zofran here (known qt prolonging effects at usual doses) -avoid known QT prolonging meds-- rec check all med list against [email or web address] database)--ESPECIALLY NEED CAUTION WITH ANTI-EMETICS -metoclopramide and famotidine with "conditional QT risk", i.e. only prolong QT when other extenuating factors present (e.g. overdose, lytes abnl) -ok to cont these for now, repeat ECG in am--if QT remains 500 or greater, would hold metoclopramide as well -monitor K/Mag/Ca--replete to usual aggressive targets -check echo naus/vomiting, diarrhea (with blood): -not anemic here -h/o colitis -recent FOC outside -being seen by dr greenberg HTN: -bp controlled -same plan preop CV eval: -for FOC, possible EGD -RCRI = 0, preserved functional capacity -no s/sx of active CAD or CHF -no arrhythmias here -cleared to proceed at low risk of periop CV complications. no testing needed preoperatively
[2017-07-23] MEDS ORDERED: POTASSIUM CHLORIDE TABS 20 MEQ TABLET.ER (FP) PO ONE (11:17)
--- NOTE | 2017-07-23 11:19 | PN ---
GI Progress Note Subjective: GI Note: Nausea has resolved but had some rectal bleeding today. No obstruction on FUA. I reveiewed her 05/[address] Bella. This is a poosible apple core lesion vs spasm in proximal tx colon. Her last colonoscopy was in 2007. Upon repeated questioning Shelli now believes that both brothers of GI cancers and that one had a colon cancer. I have advised both an EGD and a colonoscopy given her repeated nausea, RUQ mass, the CT abnormality, her bleeding and FH of GI malignancies. I have informed her of the potential for such complications as perforation and hemorrhage. She has given informed consents for both. I have scheduled both procedures for 07/25/17. Discussed case with Dr Chatterjee who has no cardiac objections. - Objective Vital Signs: Vital Signs Temperature 98.8 F 07/23/17 07:53 Pulse Rate 90 07/23/17 07:53 Respiratory Rate 20 07/23/17 07:53 Blood Pressure 143/76 07/23/17 07:53 O2 Sat by Pulse Oximetry (%) 96 07/23/17 07:53 Constitutional: Calm Gastrointestinal Inspection: Yes: Scars (oblique RUQ incision) ...Auscultate: Yes: Normoactive Bowel Sounds ...Palpate: Yes: Mass (RUQ mass unchanged), Soft, Other (nontender) Labs: CBC, BMP 07/23/17 06:10 07/23/17 06:10 INR, PTT INR 1.15 (0.82-1.09) H 07/22/17 12:28 Problem List - Problems (1) Nausea and vomiting Code(s): R11.2 - NAUSEA WITH VOMITING, UNSPECIFIED Qualifiers: Qualified Code(s): R11.2 - Nausea with vomiting, unspecified (2) Constipation Code(s): K59.00 - CONSTIPATION, UNSPECIFIED (3) Mass in the abdomen Assessment/Plan: Given the possible colon mass on CT this may account for the palpable mass. Given her nausea a UGI neoplasm also needs to be excluded. Will prep for EGD and colonoscopy on 07/25 Code(s): R19.00 - INTRA-ABD AND PELVIC SWELLING, MASS AND LUMP, UNSP SITE (4) Umbilical hernia without mention of obstruction or gangrene Code(s): K42.9 - UMBILICAL HERNIA WITHOUT OBSTRUCTION OR GANGRENE
--- NOTE | 2017-07-23 12:11 | PN ---
Progress Note, Physician Chief Complaint: Ms Jaquez says she is feeling better today. Denies cp, sob, n/v. Says bleeding has stopped currently. - Current Medication List Current Medications: Active Medications Atorvastatin Calcium (Lipitor -) 20 mg PO HS [facility] Last Admin: 07/22/17 21:51 Dose: 20 mg Bisacodyl (Dulcolax -) 20 mg PO ONCE ONE Stop: 07/24/17 18:01 Ceftriaxone Sodium 1 gm/ (Dextrose) 50 mls @ 100 mls/hr IVPB DAILY [facility] PRN Reason: Protocol Last Admin: 07/23/17 10:02 Dose: 100 mls/hr Famotidine/Sodium Chloride (Pepcid 20 Mg Premixed Ivpb -) 20 mg in 50 mls @ 100 mls/hr IVPB BID [facility] Last Admin: 07/23/17 10:01 Dose: 100 mls/hr Sodium Chloride (Normal Saline -) 1,000 mls @ 83 mls/hr IV ASDIR [facility] Last Admin: 07/22/17 18:22 Dose: 83 mls/hr Lorazepam (Ativan -) 0.5 mg PO TID PRN PRN Reason: ANXIETY Last Admin: 07/22/17 21:51 Dose: 0.5 mg Metoprolol Succinate (Toprol Xl -) 25 mg PO DAILY [facility] Last Admin: 07/23/17 10:02 Dose: 25 mg Polyethylene Glycol (Miralax (For Daily Use) -) 17 gm PO TID [facility] Valsartan (Diovan -) 160 mg PO DAILY [facility] Last Admin: 07/23/17 10:02 Dose: 160 mg - Objective Vital Signs: Vital Signs Temperature 37.1 C 07/23/17 07:53 Pulse Rate 90 07/23/17 07:53 Respiratory Rate 20 07/23/17 07:53 Blood Pressure 143/76 07/23/17 07:53 O2 Sat by Pulse Oximetry (%) 96 07/23/17 07:53 Constitutional: Yes: Well Nourished, No Distress, Calm Cardiovascular: Yes: Regular Rate and Rhythm. No: Gallop, Murmur, Rub Respiratory: Yes: Regular, CTA Bilaterally. No: Rales, Rhonchi, Wheezes Gastrointestinal: Yes: Normal Bowel Sounds, Soft. No: Distention, Tenderness Extremities: Yes: WNL Edema: No Labs: CBC, BMP 07/23/17 06:10 07/23/17 06:10 INR, PTT INR 1.15 (0.82-1.09) H 07/22/17 12:28 Problem List - Problems (1) GI bleed Assessment/Plan: -appreciate GI assistance and case discussed -not anemic -considering nausea/vomiting and possible mass planning for endoscopy/ colonoscopy on 07/25 Code(s): K92.2 - GASTROINTESTINAL HEMORRHAGE, UNSPECIFIED (2) UTI (urinary tract infection) Assessment/Plan: -continue rocephin day 2 Code(s): N39.0 - URINARY TRACT INFECTION, SITE NOT SPECIFIED Qualifiers: Urinary tract infection type: acute cystitis Hematuria presence: without hematuria Qualified Code(s): N30.00 - Acute cystitis without hematuria (3) Mass in the abdomen Assessment/Plan: -concerning for malignancy -GI following -awaiting abdominal ultrasound -also for endoscopy/colonoscopy Code(s): R19.00 - INTRA-ABD AND PELVIC SWELLING, MASS AND LUMP, UNSP SITE (4) Hyperlipidemia Assessment/Plan: -continue lipitor Code(s): E78.5 - HYPERLIPIDEMIA, UNSPECIFIED (5) Hypertension Assessment/Plan: -continue toprol xl and diovan Code(s): I10 - ESSENTIAL (PRIMARY) HYPERTENSION Qualifiers: Hypertension type: essential hypertension Qualified Code(s): I10 - Essential (primary) hypertension (6) Nausea and vomiting Assessment/Plan: -resolved Code(s): R11.2 - NAUSEA WITH VOMITING, UNSPECIFIED Qualifiers: Vomiting type: unspecified Vomiting Intractability: non-intractable Qualified Code(s): R11.2 - Nausea with vomiting, unspecified
--- NOTE | 2017-07-23 12:23 | EKG ---
Test Reason : Blood Pressure : / mmHG Vent. Rate : 076 BPM Atrial Rate : 076 BPM P-R Int : 140 ms QRS Dur : 074 ms QT Int : 450 ms P-R-T Axes : 064 016 059 degrees QTc Int : 506 ms NORMAL SINUS RHYTHM POSSIBLE LEFT ATRIAL ENLARGEMENT NONSPECIFIC ST ABNORMALITY PROLONGED QT ABNORMAL ECG WHEN COMPARED WITH ECG OF 22-JUL-2017 11:29, SINUS RHYTHM HAS REPLACED ATRIAL FIBRILLATION Confirmed by ARMIDA DELCID, BE ([id number]) on 07/23/2017 12:23:33 PM Referred By: Confirmed By:BE HUFFMAN MD
--- NOTE | 2017-07-23 12:26 | EKG ---
Test Reason : Blood Pressure : / mmHG Vent. Rate : 097 BPM Atrial Rate : 119 BPM P-R Int : 000 ms QRS Dur : 080 ms QT Int : 416 ms P-R-T Axes : 000 028 064 degrees QTc Int : 528 ms ATRIAL FIBRILLATION PROLONGED QT ABNORMAL ECG WHEN COMPARED WITH ECG OF 22-JUN-2017 16:59, ATRIAL FIBRILLATION HAS REPLACED SINUS RHYTHM Confirmed by BE HUFFMAN MD ([id number]) on 07/23/2017 12:26:40 PM Referred By: Confirmed By:BE HUFFMAN MD
[2017-07-23] MEDS: POLYETHYLENE GLYCOL 3350 119 GM BTL PO SCH ×2 (14:21→21:55)
[2017-07-23] MEDS: LORazepam 0.5 MG TABLET PO PRN (21:54)
[2017-07-23] MEDS: SODIUM CHLORIDE 1,000 ML IV SCH (21:54)
[2017-07-23] MEDS: ATORVASTATIN CA 20 MG TABLET (FP) PO SCH (21:55)
[2017-07-24] MEDS: POLYETHYLENE GLYCOL 3350 119 GM BTL PO SCH ×3 (06:49→21:35)
[2017-07-24] MEDS: SODIUM CHLORIDE 1,000 ML IV SCH ×3 (06:49→21:33)
[2017-07-24 08:05] LABS: BASO % 1.3 % (0-2.0); EOS % 3.6 % (0-4.5); HEMATOCRIT 35.9 % (32.4-45.2); HEMOGLOBIN 12.4 GM/dL (10.7-15.3); LYMPH % 40.6 % (8-40); MCH 27.5 pg (25.7-33.7); MCHC 34.6 g/dl (32.0-36.0); MEAN CELL VOLUME 79.6 fl (80-96); MEAN PLT VOLUME 7.5 fl (7.5-11.1); MONO % 6.1 % (3.8-10.2); NEUT % 48.4 % (42.8-82.8); PLATELET COUNT 209 K/MM3 (134-434); RBC 4.51 M/mm3 (3.60-5.2); RDW 15.4 % (11.6-15.6)
[2017-07-24 08:28] LABS: ANION GAP 11 (8-16); BLOOD UREA NITROGEN 16 mg/dL (7-18); CALCIUM 8.5 mg/dL (8.5-10.1); CHLORIDE 112 mmol/L (98-107); CO2 22 mmol/L (21-32); CREATININE 0.9 mg/dL (0.55-1.02); GLUCOSE,RANDOM 83 mg/dL (74-106); PHOSPHOROUS 3.7 mg/dL (2.5-4.9); POTASSIUM 3.9 mmol/L (3.5-5.1); SODIUM 145 mmol/L (136-145)
[2017-07-24] MEDS ORDERED: PEG3350/SOD SULF,BICARB,CL/KCL 4,000 ML SOLN.RECON PO ONE (09:00)
[2017-07-24] MEDS ORDERED: DEXTROSE 5%-WATER - 50 ML IVPB ONE (09:40)
[2017-07-24] MEDS ORDERED: cefTRIAXone SODIUM 1 GM VIAL ONE (09:40)
[2017-07-24] MEDS: metoPROLOL SUCCINATE 25 MG TAB.SR.24H (FP) PO SCH (09:42)
[2017-07-24] MEDS: CEFTRIAXONE 1 GM in DEXTROSE 5%-WATER - 50 ML IVPB SCH (09:42)
[2017-07-24] MEDS: VALSARTAN 160 MG TABLET (UD) PO SCH (09:43)
[2017-07-24] MEDS: FAMOTIDINE 20 MG/50 ML IVPB 20 MG/50 ML MG IVPB SCH ×2 (09:43→21:34)
--- NOTE | 2017-07-24 12:51 | EKG ---
Test Reason : Blood Pressure : / mmHG Vent. Rate : 064 BPM Atrial Rate : 064 BPM P-R Int : 162 ms QRS Dur : 086 ms QT Int : 450 ms P-R-T Axes : 067 035 060 degrees QTc Int : 464 ms SINUS RHYTHM WITH PREMATURE ATRIAL COMPLEXES MINIMAL VOLTAGE CRITERIA FOR LVH, MAY BE NORMAL VARIANT BORDERLINE ECG WHEN COMPARED WITH ECG OF 22-JUL-2017 16:30, PREMATURE ATRIAL COMPLEXES ARE NOW PRESENT Confirmed by Mk Madison ([id number]) on 07/24/2017 12:51:29 PM Referred By: Faizan DAVIS Confirmed By:Mk Madison
--- NOTE | 2017-07-24 13:51 | PN ---
Progress Note (short form) - Note Progress Note: Chief Complaint: ab ekg. S: getting prep for endoscopy tomorrow --> diarrhea. no cp, palps, sob, dizziness. Current Medications Atorvastatin Calcium (Lipitor -) 20 mg PO HS [facility] Last Admin: 07/23/17 21:55 Dose: 20 mg Bisacodyl (Dulcolax -) 20 mg PO ONCE ONE Stop: 07/24/17 18:01 Ceftriaxone Sodium 1 gm/ (Dextrose) 50 mls @ 100 mls/hr IVPB DAILY [facility] PRN Reason: Protocol Last Admin: 07/24/17 09:42 Dose: 100 mls/hr Famotidine/Sodium Chloride (Pepcid 20 Mg Premixed Ivpb -) 20 mg in 50 mls @ 100 mls/hr IVPB BID [facility] Last Admin: 07/24/17 09:43 Dose: 100 mls/hr Sodium Chloride (Normal Saline -) 1,000 mls @ 83 mls/hr IV ASDIR [facility] Last Admin: 07/24/17 06:49 Dose: 83 mls/hr Lorazepam (Ativan -) 0.5 mg PO TID PRN PRN Reason: ANXIETY Last Admin: 07/23/17 21:54 Dose: 0.5 mg Metoprolol Succinate (Toprol Xl -) 25 mg PO DAILY [facility] Last Admin: 07/24/17 09:42 Dose: 25 mg Polyethylene Glycol (Miralax (For Daily Use) -) 17 gm PO TID [facility] Last Admin: 07/24/17 13:42 Dose: Not Given Valsartan (Diovan -) 160 mg PO DAILY [facility] Last Admin: 07/24/17 09:43 Dose: 160 mg Vital Signs - 24 hr 07/23/17 07/23/17 07/23/17 13:59 15:00 17:46 Temperature 98.9 F 98.7 F Pulse Rate 74 72 Respiratory 18 18 18 Rate Blood Pressure 119/48 120/52 O2 Sat by Pulse 96 Oximetry (%) 07/23/17 07/23/17 07/23/17 18:10 21:00 22:00 Temperature 98.6 F 98.2 F Pulse Rate 64 74 Respiratory 18 18 Rate Blood Pressure 134/61 134/65 O2 Sat by Pulse 98 Oximetry (%) 07/24/17 07/24/17 07/24/17 01:22 07:02 09:00 Temperature 98.5 F 98.8 F Pulse Rate 65 87 Respiratory 18 18 Rate Blood Pressure 130/55 128/78 O2 Sat by Pulse 99 Oximetry (%) 07/24/17 10:00 Temperature 97.3 F L Pulse Rate 83 Respiratory 18 Rate Blood Pressure 127/65 O2 Sat by Pulse Oximetry (%) Intake & Output 07/22/17 07/23/17 07/24/17 07/25/17 07:59 07:59 07:59 07:59 Intake Total 200 2263 Balance 200 2263 Weight 145 lb 0.004 oz Constitutional: Yes: Well Nourished, No Distress Eyes: No: Sclera Icterus HENT: No: Nasal Congestion Neck: No: Decreased ROM Respiratory: Yes: CTA Bilaterally. No: Accessory Muscle Use, Rales, Wheezes Gastrointestinal: Yes: Normal Bowel Sounds. No: Distention, Hepatomegaly, Palpable Mass, Tenderness Cardiovascular: Yes: Regular Rate and Rhythm JVD: No Carotid Bruit: No PMI: Non-Displaced Heart Sounds: Yes: S1, S2. No: Gallop Murmur: Yes: Systolic Murmur (1-2/6 early DIANN lusb). No: Diastolic Murmur Musculoskeletal: Yes: Other (No kyphosis) Extremities: No: Cold, Cyanosis Edema: No Peripheral Pulses: 2+ Left Carotid, 2+ Right Carotid, 2+ Left Doralis Pedis, 2+ Right Dorsalis Pedis Integumentary: No: Jaundice Neurological: Yes: Alert, Oriented (x3) Psychiatric: No: Agitated - Other Data Labs, Other Data: CBC, BMP 07/24/17 06:00 07/24/17 06:00 Assessment/Plan CXR--clear lungs/pleura, +ATX echo: nl lv/rv size/fn, chordal karina. mild-mod mr. ECG 07/24: sr with pac's. qt has shortened. early r wave progression. lvh. ECG 07/22 (11:29): NSR with frequent APCs. long QT. no path q's or ST-T abn ECG 07/22 (16:30): NSR, normal axis. long QT. no path q's, no ST-T abn 87 yo with pmhx of htn, hl, prior pe, copd, colitis, diverticulosis, fatty liver , anxiety/depression/bipolar who p/w n/v/d ER course notable for ab ekg. concern for afib: -erroneous computer dx on ekg--actually sinus with freq apcs -tele reviewed--no afib thus far. -now off tele monitoring prolonged QT/abnrl EKG: -QT 490-500 range stable since 05/13 (normal on 2016 ecg's)--possibly secondary to prn zofran doses (given here this time, ? last time as well). -would not use zofran here (known qt prolonging effects at usual doses) -avoid known QT prolonging meds-- rec check all med list against [email or web address] database)--ESPECIALLY NEED CAUTION WITH ANTI-EMETICS -metoclopramide and famotidine with "conditional QT risk", i.e. only prolong QT when other extenuating factors present (e.g. overdose, lytes abnl). ok to cont these for now, repeat ECG --> qt has shortened. -monitor K/Mag/Ca--replete to usual aggressive targets -no sig ab on echo. naus/vomiting, diarrhea (with blood): -not anemic here -h/o colitis -recent FOC outside -being seen by dr greenberg HTN: -bp controlled -same plan preop CV eval: -for FOC, possible EGD -RCRI = 0, preserved functional capacity -no s/sx of active CAD or CHF -no arrhythmias here -cleared to proceed at low risk of periop CV complications. no testing needed preoperatively
--- NOTE | 2017-07-24 16:17 | PN ---
Progress Note, Physician Chief Complaint: Ms Jaquez says she is feeling better today. Denies cp, sob, n/v. Currently no bleeding, having frequent bowel movements secondary to prep. - Current Medication List Current Medications: Active Medications Atorvastatin Calcium (Lipitor -) 20 mg PO HS [facility] Last Admin: 07/23/17 21:55 Dose: 20 mg Bisacodyl (Dulcolax -) 20 mg PO ONCE ONE Stop: 07/24/17 18:01 Ceftriaxone Sodium 1 gm/ (Dextrose) 50 mls @ 100 mls/hr IVPB DAILY [facility] PRN Reason: Protocol Last Admin: 07/24/17 09:42 Dose: 100 mls/hr Famotidine/Sodium Chloride (Pepcid 20 Mg Premixed Ivpb -) 20 mg in 50 mls @ 100 mls/hr IVPB BID [facility] Last Admin: 07/24/17 09:43 Dose: 100 mls/hr Sodium Chloride (Normal Saline -) 1,000 mls @ 83 mls/hr IV ASDIR [facility] Last Admin: 07/24/17 06:49 Dose: 83 mls/hr Lorazepam (Ativan -) 0.5 mg PO TID PRN PRN Reason: ANXIETY Last Admin: 07/23/17 21:54 Dose: 0.5 mg Metoprolol Succinate (Toprol Xl -) 25 mg PO DAILY [facility] Last Admin: 07/24/17 09:42 Dose: 25 mg Polyethylene Glycol (Miralax (For Daily Use) -) 17 gm PO TID [facility] Last Admin: 07/24/17 13:42 Dose: Not Given Valsartan (Diovan -) 160 mg PO DAILY [facility] Last Admin: 07/24/17 09:43 Dose: 160 mg - Objective Vital Signs: Vital Signs Temperature 36.7 C 07/24/17 15:10 Pulse Rate 66 07/24/17 15:10 Respiratory Rate 20 07/24/17 15:10 Blood Pressure 131/75 07/24/17 15:10 O2 Sat by Pulse Oximetry (%) 99 07/24/17 09:00 Constitutional: Yes: Well Nourished, No Distress, Calm Cardiovascular: Yes: Regular Rate and Rhythm. No: Gallop, Murmur, Rub Respiratory: Yes: Regular, CTA Bilaterally. No: Rales, Rhonchi, Wheezes Gastrointestinal: Yes: Normal Bowel Sounds, Soft. No: Distention, Tenderness Extremities: Yes: WNL Edema: No Labs: CBC, BMP 07/24/17 06:00 07/24/17 06:00 INR, PTT INR 1.15 (0.82-1.09) H 07/22/17 12:28 Problem List - Problems (1) GI bleed Code(s): K92.2 - GASTROINTESTINAL HEMORRHAGE, UNSPECIFIED (2) UTI (urinary tract infection) Code(s): N39.0 - URINARY TRACT INFECTION, SITE NOT SPECIFIED Qualifiers: Urinary tract infection type: acute cystitis Hematuria presence: without hematuria Qualified Code(s): N30.00 - Acute cystitis without hematuria (3) Mass in the abdomen Code(s): R19.00 - INTRA-ABD AND PELVIC SWELLING, MASS AND LUMP, UNSP SITE (4) Hyperlipidemia Code(s): E78.5 - HYPERLIPIDEMIA, UNSPECIFIED (5) Hypertension Code(s): I10 - ESSENTIAL (PRIMARY) HYPERTENSION Qualifiers: Hypertension type: essential hypertension Qualified Code(s): I10 - Essential (primary) hypertension (6) Nausea and vomiting Code(s): R11.2 - NAUSEA WITH VOMITING, UNSPECIFIED Qualifiers: Vomiting type: unspecified Vomiting Intractability: non-intractable Qualified Code(s): R11.2 - Nausea with vomiting, unspecified Assessment/Plan (1) GI bleed Assessment/Plan: -appreciate GI assistance and case discussed -not anemic -endoscopy/colonoscopy planned for tomorrow Code(s): K92.2 - GASTROINTESTINAL HEMORRHAGE, UNSPECIFIED (2) UTI (urinary tract infection) Assessment/Plan: -continue rocephin day 3 Code(s): N39.0 - URINARY TRACT INFECTION, SITE NOT SPECIFIED Qualifiers: Urinary tract infection type: acute cystitis Hematuria presence: without hematuria Qualified Code(s): N30.00 - Acute cystitis without hematuria (3) Mass in the abdomen Assessment/Plan: -concerning for malignancy -GI following -abdominal ultrasound showing fluid filled cyst in liver -endoscopy/colonoscopy tomorrow Code(s): R19.00 - INTRA-ABD AND PELVIC SWELLING, MASS AND LUMP, UNSP SITE (4) Hyperlipidemia Assessment/Plan: -continue lipitor Code(s): E78.5 - HYPERLIPIDEMIA, UNSPECIFIED (5) Hypertension Assessment/Plan: -continue toprol xl and diovan Code(s): I10 - ESSENTIAL (PRIMARY) HYPERTENSION Qualifiers: Hypertension type: essential hypertension Qualified Code(s): I10 - Essential (primary) hypertension (6) Nausea and vomiting Assessment/Plan: -resolved Code(s): R11.2 - NAUSEA WITH VOMITING, UNSPECIFIED Qualifiers: Vomiting type: unspecified Vomiting Intractability: non-intractable Qualified Code(s): R11.2 - Nausea with vomiting, unspecified
--- NOTE | 2017-07-24 17:10 | PN ---
GI Progress Note Subjective: GI NOte: Drinking Golytely. NO bleeding. Her RUQ mass is not palpable today and may have been a focal stool impaction. Given her CT abnormality, and FH of GI malignancy will proceed with EGD and colonoscopy tomorrow. Discussed situation with her daughterShelli - Objective Vital Signs: Vital Signs Temperature 98.1 F 07/24/17 15:10 Pulse Rate 66 07/24/17 15:10 Respiratory Rate 20 07/24/17 15:10 Blood Pressure 131/75 07/24/17 15:10 O2 Sat by Pulse Oximetry (%) 99 07/24/17 09:00 Constitutional: Calm ...Auscultate: Yes: Hyperactive Bowel Sounds ...Palpate: Yes: Soft, Other (nontender, no mass appreciated) Labs: CBC, BMP 07/24/17 06:00 07/24/17 06:00 INR, PTT INR 1.15 (0.82-1.09) H 07/22/17 12:28 Problem List - Problems (1) Nausea and vomiting Code(s): R11.2 - NAUSEA WITH VOMITING, UNSPECIFIED Qualifiers: Vomiting type: unspecified Vomiting Intractability: non-intractable Qualified Code(s): R11.2 - Nausea with vomiting, unspecified (2) Constipation Code(s): K59.00 - CONSTIPATION, UNSPECIFIED (3) Mass in the abdomen Assessment/Plan: For EGD and colonoscopy in AM to exclude a GI tract neoplasm Code(s): R19.00 - INTRA-ABD AND PELVIC SWELLING, MASS AND LUMP, UNSP SITE (4) Umbilical hernia without mention of obstruction or gangrene Code(s): K42.9 - UMBILICAL HERNIA WITHOUT OBSTRUCTION OR GANGRENE
[2017-07-24] MEDS ORDERED: BISACODYL 5 MG TABLET.DR (FP) PO ONE (18:00)
[2017-07-24] MEDS: LORazepam 0.5 MG TABLET PO PRN (21:33)
[2017-07-24] MEDS: ATORVASTATIN CA 20 MG TABLET (FP) PO SCH (21:35)
[2017-07-25] MEDS: POLYETHYLENE GLYCOL 3350 119 GM BTL PO SCH (05:13)
[2017-07-25 07:52] LABS: EOS % 3.1 % (0-4.5); HEMATOCRIT 34.1 % (32.4-45.2); LYMPH % 32.3 % (8-40); MCH 27.9 pg (25.7-33.7); MCHC 35.2 g/dl (32.0-36.0); MEAN CELL VOLUME 79.3 fl (80-96); MEAN PLT VOLUME 7.5 fl (7.5-11.1); MONO % 7.3 % (3.8-10.2); NEUT % 56.3 % (42.8-82.8); PLATELET COUNT 208 K/MM3 (134-434); RDW 14.8 % (11.6-15.6); WHITE BLOOD COUNT 7.4 K/mm3 (4.0-10.0)
[2017-07-25 08:15] LABS: ANION GAP 11 (8-16); BLOOD UREA NITROGEN 7 mg/dL (7-18); CALCIUM 8.4 mg/dL (8.5-10.1); CHLORIDE 107 mmol/L (98-107); CO2 27 mmol/L (21-32); CREATININE 0.7 mg/dL (0.55-1.02); GLUCOSE,RANDOM 83 mg/dL (74-106); MAGNESIUM 1.8 mg/dL (1.8-2.4); POTASSIUM 3.1 mmol/L (3.5-5.1); SODIUM 145 mmol/L (136-145)
[2017-07-25] MEDS ORDERED: DEXTROSE 5%-WATER - 50 ML IVPB ONE (11:39)
[2017-07-25] MEDS ORDERED: cefTRIAXone SODIUM 1 GM VIAL ONE (11:39)
--- NOTE | 2017-07-25 11:42 | PN ---
Progress Note (short form) - Note Progress Note: GI Procedure NOte: Please see scanned EGD and colonoscopy reports. Gastritis and duodenitis account for the N/V. Several polyps were removed which appears benign. There is a rectal ulcer at the anal verge that could prove to be malignant. Multiple biopsies were taken. Continue PPI. Will advance diet. Await biopsies. Problem List - Problems (1) Nausea and vomiting Code(s): R11.2 - NAUSEA WITH VOMITING, UNSPECIFIED Qualifiers: Vomiting type: unspecified Vomiting Intractability: non-intractable Qualified Code(s): R11.2 - Nausea with vomiting, unspecified (2) Constipation Code(s): K59.00 - CONSTIPATION, UNSPECIFIED (3) Mass in the abdomen Code(s): R19.00 - INTRA-ABD AND PELVIC SWELLING, MASS AND LUMP, UNSP SITE (4) Umbilical hernia without mention of obstruction or gangrene Code(s): K42.9 - UMBILICAL HERNIA WITHOUT OBSTRUCTION OR GANGRENE
[2017-07-25] MEDS ORDERED: MAG HYDROX/AL HYDROX/SIMETH 30 ML UNIT-DOSE CUP PO PRN (11:44)
[2017-07-25] MEDS: VALSARTAN 160 MG TABLET (UD) PO SCH (12:03)
[2017-07-25] MEDS: CEFTRIAXONE 1 GM in DEXTROSE 5%-WATER - 50 ML IVPB SCH (12:03)
[2017-07-25] MEDS: metoPROLOL SUCCINATE 25 MG TAB.SR.24H (FP) PO SCH (12:03)
[2017-07-25] MEDS: FAMOTIDINE 20 MG/50 ML IVPB 20 MG/50 ML MG IVPB SCH (12:04)
--- NOTE | 2017-07-25 12:58 | PN ---
Progress Note, Physician Chief Complaint: Ms Jaquez is without complaint, tolerated scopes well. No cp, sob, n/v. - Current Medication List Current Medications: Active Medications Al Hydroxide/Mg Hydroxide (Mylanta Oral Suspension -) 30 ml PO Q6H PRN PRN Reason: DYSPEPSIA Atorvastatin Calcium (Lipitor -) 20 mg PO HS [facility] Last Admin: 07/24/17 21:35 Dose: 20 mg Ceftriaxone Sodium 1 gm/ (Dextrose) 50 mls @ 100 mls/hr IVPB DAILY [facility] PRN Reason: Protocol Last Admin: 07/25/17 12:03 Dose: 100 mls/hr Lorazepam (Ativan -) 0.5 mg PO TID PRN PRN Reason: ANXIETY Last Admin: 07/24/17 21:33 Dose: 0.5 mg Metoprolol Succinate (Toprol Xl -) 25 mg PO DAILY [facility] Last Admin: 07/25/17 12:03 Dose: 25 mg Pantoprazole Sodium (Protonix -) 40 mg PO BID [facility] Polyethylene Glycol (Miralax (For Daily Use) -) 17 gm PO DAILY [facility] Potassium Chloride (K-Dur -) 40 meq PO ONCE ONE Stop: 07/25/17 12:59 Valsartan (Diovan -) 160 mg PO DAILY [facility] Last Admin: 07/25/17 12:03 Dose: 160 mg - Objective Vital Signs: Vital Signs Temperature 36.7 C 07/25/17 11:57 Pulse Rate 57 L 07/25/17 11:57 Respiratory Rate 18 07/25/17 11:57 Blood Pressure 142/70 07/25/17 11:57 O2 Sat by Pulse Oximetry (%) 100 07/25/17 11:28 Constitutional: Yes: Well Nourished, No Distress, Calm Cardiovascular: Yes: Regular Rate and Rhythm. No: Gallop, Murmur, Rub Respiratory: Yes: Regular, CTA Bilaterally. No: Rales, Rhonchi, Wheezes Gastrointestinal: Yes: Normal Bowel Sounds, Soft. No: Distention, Tenderness Extremities: Yes: WNL Edema: No Labs: CBC, BMP 07/25/17 06:00 07/25/17 06:00 INR, PTT INR 1.15 (0.82-1.09) H 07/22/17 12:28 Problem List - Problems (1) GI bleed Code(s): K92.2 - GASTROINTESTINAL HEMORRHAGE, UNSPECIFIED (2) UTI (urinary tract infection) Code(s): N39.0 - URINARY TRACT INFECTION, SITE NOT SPECIFIED Qualifiers: Urinary tract infection type: acute cystitis Hematuria presence: without hematuria Qualified Code(s): N30.00 - Acute cystitis without hematuria (3) Mass in the abdomen Code(s): R19.00 - INTRA-ABD AND PELVIC SWELLING, MASS AND LUMP, UNSP SITE (4) Hyperlipidemia Code(s): E78.5 - HYPERLIPIDEMIA, UNSPECIFIED (5) Hypertension Code(s): I10 - ESSENTIAL (PRIMARY) HYPERTENSION Qualifiers: Hypertension type: essential hypertension Qualified Code(s): I10 - Essential (primary) hypertension (6) Nausea and vomiting Code(s): R11.2 - NAUSEA WITH VOMITING, UNSPECIFIED Qualifiers: Vomiting type: unspecified Vomiting Intractability: non-intractable Qualified Code(s): R11.2 - Nausea with vomiting, unspecified Assessment/Plan (1) GI bleed Assessment/Plan: -s/p endoscopy and colonoscopy -follow up official reports -restarted on diet -plan for discharge tomorrow Code(s): K92.2 - GASTROINTESTINAL HEMORRHAGE, UNSPECIFIED (2) UTI (urinary tract infection) Assessment/Plan: -continue rocephin day 4 Code(s): N39.0 - URINARY TRACT INFECTION, SITE NOT SPECIFIED Qualifiers: Urinary tract infection type: acute cystitis Hematuria presence: without hematuria Qualified Code(s): N30.00 - Acute cystitis without hematuria (3) Mass in the abdomen Assessment/Plan: -concerning for malignancy -GI following -abdominal ultrasound showing fluid filled cyst in liver -follow up biopsies of polyps Code(s): R19.00 - INTRA-ABD AND PELVIC SWELLING, MASS AND LUMP, UNSP SITE (4) Hyperlipidemia Assessment/Plan: -continue lipitor Code(s): E78.5 - HYPERLIPIDEMIA, UNSPECIFIED (5) Hypertension Assessment/Plan: -continue toprol xl and diovan Code(s): I10 - ESSENTIAL (PRIMARY) HYPERTENSION Qualifiers: Hypertension type: essential hypertension Qualified Code(s): I10 - Essential (primary) hypertension (6) Nausea and vomiting Assessment/Plan: -resolved Code(s): R11.2 - NAUSEA WITH VOMITING, UNSPECIFIED Qualifiers: Vomiting type: unspecified Vomiting Intractability: non-intractable Qualified Code(s): R11.2 - Nausea with vomiting, unspecified
[2017-07-25] MEDS ORDERED: POTASSIUM CHLORIDE TABS 20 MEQ TABLET.ER (FP) PO ONE (13:30)
[2017-07-25] MEDS ORDERED: MAGNESIUM SULF 50% (8.12 MEQ/2 ML-1 GM VIAL) IVPB ONE (17:20)
[2017-07-25] MEDS ORDERED: POTASSIUM CHLORIDE TABS 10 MEQ TABLET.ER (FP) PO ONE (17:30)
[2017-07-25] MEDS ORDERED: MAGNESIUM OXIDE 400 MG TABLET (FP) PO ONE (17:30)
[2017-07-25] MEDS ORDERED: MAGNESIUM 1GM/D5W - 1 GM/100 ML IVPB IVPB ONE (17:30)
[2017-07-25] MEDS: LORazepam 0.5 MG TABLET PO PRN ×2 (18:37→21:56)
[2017-07-25] MEDS: PANTOPRAZOLE 40 MG TABLET (FP) PO SCH (21:56)
[2017-07-25] MEDS: ATORVASTATIN CA 20 MG TABLET (FP) PO SCH (21:56)
[2017-07-26 07:43] LABS: EOS % 3.6 % (0-4.5); HEMATOCRIT 35.6 % (32.4-45.2); HEMOGLOBIN 12.5 GM/dL (10.7-15.3); LYMPH % 38.1 % (8-40); MCH 27.9 pg (25.7-33.7); MCHC 35.2 g/dl (32.0-36.0); MEAN CELL VOLUME 79.4 fl (80-96); MEAN PLT VOLUME 7.4 fl (7.5-11.1); MONO % 7.8 % (3.8-10.2); NEUT % 49.5 % (42.8-82.8); PLATELET COUNT 222 K/MM3 (134-434); RBC 4.49 M/mm3 (3.60-5.2); WHITE BLOOD COUNT 6.3 K/mm3 (4.0-10.0)
[2017-07-26 08:01] LABS: ANION GAP 5 (8-16); BLOOD UREA NITROGEN 11 mg/dL (7-18); CALCIUM 8.5 mg/dL (8.5-10.1); CHLORIDE 111 mmol/L (98-107); CO2 27 mmol/L (21-32); CREATININE 0.7 mg/dL (0.55-1.02); GLUCOSE,RANDOM 116 mg/dL (74-106); MAGNESIUM 2.3 mg/dL (1.8-2.4); PHOSPHOROUS 2.8 mg/dL (2.5-4.9); POTASSIUM 3.9 mmol/L (3.5-5.1); SODIUM 143 mmol/L (136-145)
[2017-07-26] MEDS ORDERED: cefTRIAXone SODIUM 1 GM VIAL ONE (09:56)
[2017-07-26] MEDS ORDERED: DEXTROSE 5%-WATER - 50 ML IVPB ONE (09:57)
[2017-07-26] MEDS ORDERED: POLYETHYLENE GLYCOL 3350 119 GM BTL PO SCH (10:00)
[2017-07-26] MEDS: LORazepam 0.5 MG TABLET PO PRN (10:04)
[2017-07-26] MEDS: VALSARTAN 160 MG TABLET (UD) PO SCH (10:04)
[2017-07-26] MEDS: CEFTRIAXONE 1 GM in DEXTROSE 5%-WATER - 50 ML IVPB SCH (10:04)
[2017-07-26] MEDS: PANTOPRAZOLE 40 MG TABLET (FP) PO SCH (10:04)
[2017-07-26] MEDS: metoPROLOL SUCCINATE 25 MG TAB.SR.24H (FP) PO SCH (10:04)
--- NOTE | 2017-07-26 12:07 | PATH ---
Surgical Pathology Report Patient Name: VERÓNICA PARADA [facility]. Rec. #: [id number] /Age/Gender: 1930 (Age: 87) / F Account: [id number] Location: [facility] MED/SURG Taken: 07/25/2017 Received: 07/25/2017 Reported: 07/26/2017 Physicians: Felipe Castro AGACNP Specimen(s) Received A: 2ND PORTION DUODENAL + DUODENAL BULB B: BX ANTRUM C: BX TRANSVERSE COLON POLYP D: BX CECAL POLYP E: BX RECTAL ULCER Clinical History Nausea/vomiting, palpable abdominal mass, colon cancer screening Postoperative diagnosis: Hiatal hernia, duodenitis, gastritis, colon diverticuli, colon polyps, rectal ulcer Final Diagnosis A. DUODENUM, SECOND PORTION AND DUODENAL BULB, BIOPSY: DUODENAL MUCOSA WITH MILD CHRONIC DUODENITIS WITH PRESERVED VILLOUS ARCHITECTURE. B. STOMACH, ANTRUM, BIOPSY: GASTRIC ANTRAL MUCOSA WITH MODERATE CHRONIC GASTRITIS. IMMUNOHISTOCHEMICAL STAIN FOR H. PYLORI IS NEGATIVE. C. TRANSVERSE COLON, POLYPS, POLYPECTOMY: TUBULAR ADENOMA(S). D. CECUM, POLYP, POLYPECTOMY: TUBULAR ADENOMA. E. RECTUM, ULCER, BIOPSY: COLONIC MUCOSA WITH SUPERFICIAL HYPERPLASTIC FEATURES AND FOCAL ULCERATION. Electronically Signed Leola House M.D. Gross Description A. Received in formalin, labeled "biopsy second portion of duodenum/duodenal bulb" are 4 andrea, irregular portions of soft tissue ranging from 0.3-0.6 cm. in greatest dimension. The specimens are submitted in toto in one cassette. B. Received in formalin, labeled "biopsy antrum" are 3 andrea, irregular portions of soft tissue ranging from 0.3-0.4 cm. in greatest dimension. The specimens are submitted in toto in one cassette. C. Received in formalin, labeled "biopsy transverse colon polyps" are 8 andrea, irregular portions of soft tissue ranging from 0.1-0.4 cm. in greatest dimension. The specimens are submitted in toto in one cassette. D. Received in formalin, labeled "biopsy cecal polyp" are 3 andrea, irregular portions of soft tissue ranging from 0.1-0.2 cm. in greatest dimension. The specimens are submitted in toto in one cassette. E. Received in formalin, labeled "biopsy rectal ulcer" are 2 andrea, irregular portions of soft tissue measuring 0.3 and 0.5 cm. in greatest dimension. The specimens are submitted in toto in one cassette. 07/25/201707/25/2017
[2017-07-26 13:45] VITALS: BP 118/50; PULSE 80; TEMP 98.4
--- NOTE | 2017-07-26 14:43 | DS ---
Physical Examination Vital Signs: Vital Signs Temperature 36.9 C 07/26/17 13:43 Pulse Rate 80 07/26/17 13:43 Respiratory Rate 20 07/26/17 13:43 Blood Pressure 118/50 07/26/17 13:43 O2 Sat by Pulse Oximetry (%) 98 07/26/17 10:00 Constitutional: Yes: Well Nourished, No Distress, Calm Cardiovascular: Yes: Regular Rate and Rhythm. No: Gallop, Murmur, Rub Respiratory: Yes: Regular, CTA Bilaterally. No: Rales, Rhonchi, Wheezes Gastrointestinal: Yes: Normal Bowel Sounds, Soft. No: Distention, Tenderness Extremities: Yes: WNL Edema: No Labs: CBC, BMP 07/26/17 06:00 07/26/17 06:00 Discharge Summary Reason For Visit: ATRIAL FIBRILLATION Current Active Problems Constipation (Acute) GI bleed (Acute) Mass in the abdomen (Acute) UTI (urinary tract infection) (Acute) Umbilical hernia without mention of obstruction or gangrene (Acute) Hospital Course: (1) GI bleed Code(s): K92.2 - GASTROINTESTINAL HEMORRHAGE, UNSPECIFIED (2) UTI (urinary tract infection) Code(s): N39.0 - URINARY TRACT INFECTION, SITE NOT SPECIFIED Qualifiers: Urinary tract infection type: acute cystitis Hematuria presence: without hematuria Qualified Code(s): N30.00 - Acute cystitis without hematuria (3) Mass in the abdomen Code(s): R19.00 - INTRA-ABD AND PELVIC SWELLING, MASS AND LUMP, UNSP SITE (4) Hyperlipidemia Code(s): E78.5 - HYPERLIPIDEMIA, UNSPECIFIED (5) Hypertension Code(s): I10 - ESSENTIAL (PRIMARY) HYPERTENSION Qualifiers: Hypertension type: essential hypertension Qualified Code(s): I10 - Essential (primary) hypertension (6) Nausea and vomiting Code(s): R11.2 - NAUSEA WITH VOMITING, UNSPECIFIED Qualifiers: Vomiting type: unspecified Vomiting Intractability: non-intractable Qualified Code(s): R11.2 - Nausea with vomiting, unspecified Ms Jaquez is a very pleasant 87 year old female who came in with GI bleed and nausea/vomiting. She was admitted to the hospital and started on PPI. She was seen by GI and a CT scan was performed where a mass was noted. This was evaluated by ultrasound and was a fluid filled cyst in the liver. However since had bleeding with n/v, she underwent EGD and colonoscopy. Gastritis/duodenitis found on EGD, small polyps found on colonoscopy. Currently the bleeding has stopped and her H/H stable. She is also tolerating her diet. She was thought to have a UTI and was started on rocephin, however cultures are negative and this will be stopped. She is safe for discharge home with follow up with Dr Mills and Dr Michaud. 35 minutes spent in preparation of this discharge Condition: Good - Instructions Diet, Activity, Other Instructions: resume previous diet and activity Referrals: Brenden Chatterjee MD [Staff Physician] - Mukund Michaud MD [Staff Physician] - Kayden Mills MD [Primary Care Provider] - 1 Week Disposition: HOME - Home Medications Comprehensive Discharge Medication List: Ambulatory Orders LORazepam [Ativan] 0.5 mg PO TID PRN 06/20/15 Paroxetine HCl 30 mg PO DAILY 06/20/15 Simvastatin 40 mg PO HS 06/20/15 Olanzapine [Zyprexa -] 2.5 mg PO HS tablet 06/23/15 Valsartan 160 mg PO DAILY #30 tablet 06/23/15 Metoprolol Succinate [Toprol Xl] 25 mg PO DAILY 05/20/17 Pantoprazole Sodium [Protonix -] 40 mg PO DAILY #30 tablet.ec 07/26/17
== END 2017-07-26 17:10 | disposition home or self-care (01) | DRG 392 ==
LOC: JER 10:42 → JERBED 14:10 → J4W 18:06 → OBSVTOIN 07-23 13:39 → J7W 07-23 17:45
PROVIDERS: ADMIT Internal Medicine; ATTEND Internal Medicine
PROC: 0DBL8ZX Excision of Transverse Colon, Via Natural or Artificial Opening Endoscopic, Diagnostic (ICD-10-PCS; 2017-07-25)
PROC: 0DDP8ZX Extraction of Rectum, Via Natural or Artificial Opening Endoscopic, Diagnostic (ICD-10-PCS; 2017-07-25)
PROC: 0DD98ZX Extraction of Duodenum, Via Natural or Artificial Opening Endoscopic, Diagnostic (ICD-10-PCS; 2017-07-25)
PROC: 0DD68ZX Extraction of Stomach, Via Natural or Artificial Opening Endoscopic, Diagnostic (ICD-10-PCS; 2017-07-25)
PROC: 0DBH8ZX Excision of Cecum, Via Natural or Artificial Opening Endoscopic, Diagnostic (ICD-10-PCS; principal; 2017-07-25 10:30)
DX: R19.00 Intra-abdominal and pelvic swelling, mass and lump, unspecified site (principal); N39.0 Urinary tract infection, site not specified; K92.2 Gastrointestinal hemorrhage, unspecified; K62.6 Ulcer of anus and rectum; K57.90 Diverticulosis of intestine, part unspecified, without perforation or abscess without bleeding; I10 Essential (primary) hypertension; E78.5 Hyperlipidemia, unspecified; F41.8 Other specified anxiety disorders; R62.7 Adult failure to thrive; I48.91 Unspecified atrial fibrillation; J44.9 Chronic obstructive pulmonary disease, unspecified; R19.7 Diarrhea, unspecified; E87.5 Hyperkalemia; K76.0 Fatty (change of) liver, not elsewhere classified; K42.9 Umbilical hernia without obstruction or gangrene; K59.00 Constipation, unspecified; I45.81 Long QT syndrome; K76.89 Other specified diseases of liver; K29.70 Gastritis, unspecified, without bleeding; K29.80 Duodenitis without bleeding; K64.8 Other hemorrhoids; Z86.711 Personal history of pulmonary embolism
CPT/HCPCS: 36415; 71045-TC-FY; 74019-TC-FY; 76700-TC; 80048; 80053; 81003; 81015; 82150; 82378; 82550; 82553; 83690; 83735; 83880; 84100; 84443; 84484; 85025; 85027; 85610; 85730; 86140; 87045; 87046; 87086; 88305-TC; 93005; 93010; 93306-TC; 99283-25; G0378; J7030